=== PATIENT | female | born 1960 | race Caucasian/White ===

== ENCOUNTER → 2017-04-30 | Outpatient (CLI) | payer OTHER ==
[~2017-04-30] MED LIST: Bactrim; HYDR-3419 PO; LEVO175T3 PO; MULT-506 PO; VITBC PO
--- NOTE | 2017-05-01 07:48 | MAMMOGRAPHY REPORT ---
BILATERAL DIGITAL SCREENING MAMMOGRAM TOMOSYNTHESIS WITH CAD: 04/30/2017 CLINICAL HISTORY: Routine screening. Patient has no complaints. TECHNIQUE: Breast tomosynthesis in addition to standard 2D mammography was performed. Current study was also evaluated with a Computer Aided Detection (CAD) system. COMPARISON: Comparison is made to exams dated: 04/24/2016 mammogram, 04/22/2015 mammogram, 04/20/2014 m ammogram, 04/14/2013 mammogram, 04/08/2012 mammogram, and 04/06/2011 mammogram - [facility]. BREAST COMPOSITION: There are scattered areas of fibroglandular density in both breasts. FINDINGS: There are scattered benign rim calcifications and round microcalcifications in the breasts . No suspicious mass, architectural distortion or cluster of new, suspicious microcalcifications is seen. IMPRESSION: ACR BI-RADS CATEGORY 1: NEGATIVE There is no mammographic evidence of malignancy. A 1 year screening mammogram is recommended. The pa tient will receive written notification of the results. Approximately 10% of breast cancers are not detected with mammography. A negative mammographic report should not delay biopsy if a clinically suggestive mass is present. Taylor Guo M.D. ay/:04/30/2017 21:06:04 Shuttle Filler: Debby LANZA(R)(M), [facility] letter sent: Normal 1/2 BI-RADS Code: ACR BI-RADS Category 1: Negative
== END | disposition home or self-care (01) ==
LOC: C.MAMM 12:54
PROVIDERS: ATTEND Physician Assistant
DX: Z12.31 Encounter for screening mammogram for malignant neoplasm of breast (principal)

== ENCOUNTER → 2017-06-06 | Outpatient (CLI) | payer OTHER ==
--- NOTE | 2017-06-06 22:52 | DIAGNOSTIC IMAGING REPORT ---
LEFT SHOULDER 3 VIEWS CLINICAL HISTORY: Left shoulder pain. FINDINGS: 3 views of left shoulder are obtained. No prior studies are available for comparison at the time of dictation. The skeletal structures are osteopenic. No fracture or dislocation is seen. Mild productive change is identified at the acromioclavicular joint. The overlying soft tissues are within normal limits. The imaged left upper lobe lung parenchyma appears clear. IMPRESSION: No acute bony abnormality is seen in the left shoulder. Electronically signed by: Aleks Squires M.D. 06/06/2017 10:51 PM Dictated Date/Time: 06/06/2017 10:50 PM
== END | disposition home or self-care (01) ==
LOC: C.RAD 15:32
PROVIDERS: ATTEND Physician Assistant
DX: M25.512 Pain in left shoulder (principal)

== ENCOUNTER → 2017-12-24 | Outpatient (CLI) | payer OTHER ==
--- NOTE | 2017-12-24 12:05 | DIAGNOSTIC IMAGING REPORT ---
NECK ULTRASOUND CLINICAL HISTORY: Lymph node enlargement. COMPARISON STUDY: Neck ultrasound November 05, 2017. TECHNIQUE: Sonography of the left neck was performed. FINDINGS: A left level 2 lymph node shown on exam of November 05, 2017 has decreased in size since prior exam. It now measures 1.4 x 0.7 x 0.4 cm. It previously measured 1.8 x 0.8 x 0.5 cm. An adjacent morphologically benign left submandibular lymph node is stable or slightly decreased in size as well. IMPRESSION: Interval decrease in size of left-sided cervical lymph nodes which have benign imaging characteristics. Clinical follow up to ensure stability is recommended. Electronically signed by: Nicola Sandhu M.D. 12/24/2017 12:04 PM Dictated Date/Time: 12/24/2017 12:01 PM
== END | disposition home or self-care (01) ==
LOC: C.ULTR 11:12
PROVIDERS: ATTEND Internal Medicine
DX: R59.9 Enlarged lymph nodes, unspecified (principal)

== ENCOUNTER 2021-12-08 09:33 | Inpatient (IN) ==
[2021-12-08] MEDS ORDERED: KETOROLAC TROMETHAMINE 15 MG/ML VIAL IV STA ×2 (11:09→16:27)
[2021-12-08] MEDS ORDERED: ACETAMINOPHEN 1,000 MG/100 ML VIAL IV STA (11:09)
[2021-12-08] MEDS ORDERED: SODIUM CHLORIDE 0.9% 1000ML 2,000 ML IV ONE (11:09)
[2021-12-08 12:28] LABS: Hematocrit (blood only) 35.9 % (34.1-44.9); Hemoglobin 12.4 g/dl (12.0-16.0); Mean Corpuscular Hemoglobin 29.8 pg (25.0-34.0); Mean Corpuscular Hgb Conc 34.5 g/dL (32.0-36.0); Mean Corpuscular Volume 86.3 fL (80.0-100.0); Platelet Count 302 K/uL (130-400); RDW Coefficient of Variation 13.3 % (11.5-14.5); RDW Standard Deviation 41.5 fL (36.4-46.3); Red Blood Count 4.16 M/uL (3.93-5.22); White Blood Count 9.32 K/ul (4.8-10.8)
[2021-12-08 12:54] LABS: Albumin Globulin Ratio 1.1 (0.9-2); BUN Creatinine Ratio 24.6 (10-20); Bilirubin,Total 0.6 mg/dl (0.2-1.0); C Reactive Protein 3.34 mg/dl (0-0.5); Creatinine Clr Calc Pharmacy 93.8 ml/min; Est GFR (African American) 115.2 ml/min; Est GFR (Non-African American) 99.4 ml/min; Globulin 3.8 gm/dl (2.5-4.0); Magnesium 2.2 mg/dl (1.7-2.4); Phosphorus 3.1 mg/dl (2.5-4.9); Potassium 3.3 mmol/L (3.5-5.1); Total Protein 7.8 gm/dl (6.0-8.3)
[2021-12-08 13:09] LABS: Basophils # (auto) 0.09 K/uL (0-0.2); Eosinophils # (auto) 0.18 K/uL (0-0.50); Eosinophils % (auto) 1.9 %; Immature Granulocytes # (auto) 0.63 K/uL (0.00-0.02); Immature Granulocytes % (auto) 6.8 %; Lymphocytes # (auto) 1.52 K/uL (1.2-3.4); Lymphocytes % (auto) 16.3 %; Monocytes # (auto) 0.49 K/uL (0.24-0.82); Monocytes % (auto) 5.3 %; Neutrophils # (auto) 6.41 K/uL (1.4-6.5); Neutrophils % (auto) 68.7 %
--- NOTE | 2021-12-08 13:26 | Ultrasound Report ---
RIGHT LOWER EXTREMITY VENOUS DOPPLER HISTORY: Right leg pain COMPARISON STUDY: None. FINDINGS: There is normal compressibility, flow, and augmentation within the right lower extremity de ep venous system. IMPRESSION: No DVT within the right lower extremity ACT 112: Negative or not required by law. Electronically signed by: Jorge Tellez M.D. 12/08/2021 1:25 PM
[2021-12-08] MEDS ORDERED: OPTIRAY 320 100ml IV ONE (13:58)
[2021-12-08 13:59] LABS: Lyme Ab IgG w/WB Rflx Positive (Negative); Lyme Ab IgM w/WB Rflx Positive (Negative)
--- NOTE | 2021-12-08 14:25 | CT Scan Report ---
CT abd pelvis IV con only CLINICAL HISTORY: lower abd pain, right groin TECHNIQUE: Helical axial images of the abdomen and pelvis were obtained and displayed. Automated dose lowering techniques and/or adjustment according to patient size were utilized for this exam. This e xam was performed with intravenous contrast. CT DOSE: 552.23 mGycm COMPARISON: Comparison is made to CT abdomen pelvis 03/05/2013 FINDINGS: Lower chest: No acute abnormality Liver: Unremarkable. No focal lesions are seen. Gallbladder and biliary tree: The gallbladder is distended. A large gallstone is seen in the gallblad keven neck. The gallbladder wall measures 3 mm in diameter. Mild enlargement of the intra and extrahepa tic bile ducts is seen, the common bile duct measures up to 10 mm in diameter. No intra- or extrahepa tic biliary ductal dilation. Pancreas: Unremarkable, no focal lesions. Spleen: Unremarkable. Adrenals: Unremarkable. Kidneys and ureters: There is a 5 mm hypodensity in the right kidney which may represent a tiny cyst. Bladder: Bladder is distended. Reproductive organs: Unremarkable. Bowel: A hiatal hernia is seen. The appendix is not definitely seen however no secondary signs of reinaldo endicitis are seen. Lymph nodes Retroperitoneal: Unremarkable. Pelvic: Unremarkable. Mesenteric: Unremarkable. Peritoneum: Normal. Vessels: Atherosclerotic calcifications are seen. Abdominal wall: Unremarkable. Bones: Mild degenerative changes are seen. IMPRESSION: Findings are compatible with acute cholecystitis with a stone in the gallbladder neck. ACT 112: Negative or not required by law. Electronically signed by: Gary Sadler M.D. 12/08/2021 2:24 PM
[2021-12-08] MEDS ORDERED: MoRPHine SULFATE 4 MG/ML 1 ML CARP\\VIAL IV STA (15:42)
[2021-12-08] MEDS ORDERED: cefTRIAXone SODIUM 2,000 MG/70 ML BAG IV STA (15:44)
[2021-12-08] MEDS ORDERED: LACTATED RINGER'S 1,000 ML IV SCH ×2 (15:45→18:12)
[2021-12-08] MEDS ORDERED: dexAMETHasone**PF** 10 MG/ML VIAL IV ONE (16:27)
[2021-12-08] MEDS ORDERED: DOXYCYCLINE HYCLATE 100 MG in DEXTROSE 5% 100 ML IV STA (16:27)
--- NOTE | 2021-12-08 16:39 | Emergency Department Note ---
Impression & Plan Lyme disease, Transaminitis, Arthralgia of right thigh, Cholelithiasis, Lower abdominal pain ED Provider Note NAME: ABDOULAYE GRIFFITH AGE: 61 SEX: F ARRIVES VIA: Walk-In INFORMANT: Patient ED PROVIDER(S): Shayan Fortune MD CHIEF COMPLAINT: Bodyaches, lower abdominal pain, right groin pain. PLAN: Disposition: Admit MEDICAL DECISION MAKING: The patient is a pleasant 61-year-old woman with a past medical history of hyperlipidemia, hypothyroidism who presents to the emergency department accompanied by her for evaluation of ongoing generalized malaise, generalized body aches and lower abdominal pain that radiates to her right groin and thigh. Patient reports that her symptoms occur in the setting of initially developing symptoms last with headache, body aches, feverishness and presented to [facility] emergency department where she had blood work performed and was diagnosed with a urinary tract infection. However despite taking antibiotic for this symptoms did not improve when she developed lower abdominal pain into her right groin and leg. She was seen by her PCP on Sunday and had a Lyme screen performed but otherwise it was considered her leg pain may be related to radiculopathy. Notes that she has been monitoring her [employer] portal closely and noted that her Lyme testing was positive today but she had ye t to receive a call. On arrival patient is uncomfortable no acute distress, afebrile, blood pressure 174/80 and otherwise stable vital signs. She appears clinically dry. She has no focal neurologic deficits. Neck is supple with full range of motion. She has mild lower abdominal tenderness without guarding or rebound. She has mild tenderness of the right groin and proximal right thigh without lower extremity edema, discoloration or warmth. EKG without overt acute ischemia; normal intervals. WBC, H/H and platelets within normal limits. Chemistry without metabolic acidosis. Potassium 3.3 and electrolytes otherwise unremarkable. LFTs are noted to be elevated with AST, ALT and alk phos 142, 150, and 304, respectively. ESR and CRP are elevated at 52 and 3.3, respectively. Lipase not elevated. Lyme screen was positive for IgM and IgG antibodies. Anaplasma and Babesia smear were negative. Anaplasma and Babesia DNA test are pending. COVID-19 PCR was negative. Ultrasound of the right lower extremity was negative for DVT. CT of the abdomen pelvis demonstrates large gallstone within the gallbladder neck with CBD measuring 10 mm which raise suspicion for cholecystitis. Upon reevaluation the patient reports some tenderness with deep palpation but not severe. Her abdominal pain is more evident in the lower abdomen. Further, given her total bilirubin is within normal limits it seems less likely that her symptoms are related to cholecystitis. However, general surgery was consulted and case was discussed with Daniela ORELLANA and Dr. Sin general surgery on-call. Appreciate consultation/recommendations. Agree that cholecystitis is considered less likely and patient may follow-up outpatient regarding this if she were to go home. If she were to be admitted further evaluation with MRCP could be considered. I did review the patient's findings with the patient and her at the bedside. Given the duration of her symptoms which have not improved and appear to be worsening in the setting of her transaminitis which may be due to her Lyme infection with the possibility of Anaplasma we did agree with plan for admission for further management. Blood cultures were drawn and patient was treated with IV ceftriaxone for Lyme and given additional doxycycline for the possibility coinfection with Anaplasma. [place], with Dr. Kirsten Rizzo hospitalist who will evaluate the patient for admission. Triage Nursing notes reviewed and agree them. Prior medical records reviewed Vital Signs: reviewed and remarkable for hypertension. Differential diagnosis: Infection, dehydration, metabolic abnormality, hypo/hyperglycemia, electrolyte disturbance, anemia, hypoxia, cardiac sources, intracerebral event, toxicologic, neurologic, as well as other pathologies. ER treatment provided: See below. Diagnostics interpreted by me: ECG: Normal sinus rhythm, 66 bpm, no ectopy, no overt ST elevation or depression, AL 174, QTC 431, QRS 92. Cardiac Monitoring: An order for continuous cardiac monitoring was placed and demonstrated Normal sinus rhythm, 66 bpm, no ectopy. Laboratory studies: See below Imaging studies: See below Consultation(s): Daniela ORELLANA and Dr. Sin general surgery on-call [place], with Dr. Kirsten Rizzo hospitalist HPI: The patient is a pleasant 61-year-old woman with a past medical history of hyperlipidemia, hypothyroidism who presents to the emergency department accompanied by her for evaluation of ongoing generalized malaise, generalized body aches and lower abdominal pain that radiates to her right groin and thigh. Patient reports that her symptoms occur in the setting of initially developing symptoms last with headache, body aches, feverishness and presented to [facility] emergency department where she had blood work performed and was diagnosed with a urinary tract infection. However despite taking antibiotic for this symptoms did not improve when she developed lower ab dominal pain into her right groin and leg. She was seen by her PCP on Sunday and had a Lyme screen performed but otherwise it was considered her leg pain may be related to radiculopathy. Notes that she has been monitoring her [employer] portal closely and noted that her Lyme testing was positive today but she had yet to receive a call. ROS: See above HPI for pertinent positives & negatives. A total of 10 systems reviewed and were otherwise negative. VITALS:See Below PHYSICAL EXAMINATION: GENERAL: Awake, alert, fatigued-appearing, in no distress HENT: Normocephalic, atraumatic. Oropharynx with dry mucous membranes and otherwise unremarkable EYES: Normal conjunctiva. Sclera non-icteric. EOMI. No nystamgus. PEARRL. NECK: Supple. No nuchal rigidity. FROM. No JVD. RESPIRATORY: Clear to auscultation. CARDIAC: Regular rate, normal rhythm. Extremities warm and well perfused. Pulses equal. ABDOMEN: Soft, non-distended. Mild lower abdominal tenderness to palpation. No rebound or guarding. No masses. RECTAL: Deferred. MUSCULOSKELETAL: Chest examination reveals no tenderness. The back is symmetrical on inspection without obvious abnormality. There is no CVA tenderness to palpation. No joint edema. FROM. LOWER EXTREMITIES: Calves are equal size bilaterally and non-tender. No edema. No discoloration. Mild tenderness of right medial thigh. NEURO: Normal sensorium. No sensory or motor deficits noted. SKIN: Patch of light, non-raised/non-warm/non-tender erythema to the medial aspect of her left ankle. No rash or jaundice noted. Shayan Fortune MD Past Med/Surg History Medical History Arthritis Hypothyroidism Surgical History History of appendectomy History of colonoscopy History of tonsillectomy [place] teeth removed Family History (Updated 12/08/21 @ 17:43 by Maggie Duncan PA-C) Mother Cancer Lung disease Father Heart disease Hypertension ESRD (end stage renal disease) Social History (Updated 12/08/21 @ 18:09 by Maggie Duncan PA-C) Smoking Status: Former smoker Smoking End Date: 1987; Second Hand Exposure: No; Tobacco Cessation Education Requested by Patient: No Hx Alcohol Use: Yes Alcohol type: hard liquor Alcohol Intake Frequency Comment: rare occasion - ex. wedding celebration Hx Substance Use: No Preferred Language: Chinese Communication Ability: Effective Lock Expert Required: No Beliefs That Will Affect Care: None Current Living Situation: Family Current Living Situation Comment: AND SON Other Information That Helps Us Care for You: No Feels Safe at Home: Yes Safety Concerns: Feels Safe At This Time Assistive Devices: Glasses Allergies Allergies Allergy/AdvReac Type Severity Reaction Status Date / Time No Known Allergies Allergy Verified 12/08/21 14:22 Home Meds Home Medications Medication Instructions Recorded Confirmed alfalfa 250 mg tablet 2,500 mg PO DAILY 05/26/19 12/08/21 multivitamin 1 tab PO DAILY 05/26/19 12/08/21 vitamin B complex 1 tab PO DAILY 05/26/19 12/08/21 ascorbic acid (vitamin C) 500 mg 1,000 mg PO DAILY 04/06/21 12/08/21 tablet (Vitamin C) levothyroxine 125 mcg tablet 125 mcg PO DAILYBB 12/08/21 12/08/21 (Euthyrox) Results & Data (ED) Vital Signs Vital Signs - 24 hr 12/08/21 09:40 12/08/21 12:10 12/08/21 11:33 Temperature 36.4 C L Temperature Source Oral Pulse Rate 75 75 Pulse Rate [Apical] 62 Pulse Rate from SpO2 Sensor Pulse Rhythm Regular Pulse Rhythm [Apical] Regular Respiratory Rate 18 18 16 Respiratory Effort / Characteristics Non-Labored Respiratory Depth Normal Respiratory Pattern Regular Blood Pressure 174/80 H Blood Pressure [Right Arm] 175/80 H Blood Pressure Mean 111 Blood Pressure Mean [Right Arm] 111 Pulse Oximetry 97 97 98 Oxygen Delivery Method Room Air Room Air Room Air Sepsis Recent Fever Within 48 Hours No Sepsis New/Unexplained Change in Mental Status No Sepsis Action Taken by Nursing No Action Required 12/08/21 13:00 12/08/21 15:03 12/08/21 15:30 Temperature Temperature Source Pulse Rate 65 Pulse Rate [Apical] 59 L Pulse Rate from SpO2 Sensor 66 Pulse Rhythm Pulse Rhythm [Apical] Regular Respiratory Rate 18 15 Respiratory Effort / Characteristics Non-Labored Respiratory Depth Normal Respiratory Pattern Regular Blood Pressure 164/71 H 173/77 H Blood Pressure [Right Arm] 157/112 H Blood Pressure Mean 102 109 Blood Pressure Mean [Right Arm] 127 Pulse Oximetry 97 98 Oxygen Delivery Method Room Air Sepsis Recent Fever Within 48 Hours Sepsis New/Unexplained Change in Mental Status Sepsis Action Taken by Nursing 12/08/21 15:30 12/08/21 16:00 12/08/21 16:30 Temperature Temperature Source Pulse Rate 71 66 Pulse Rate [Apical] Pulse Rate from SpO2 Sensor 71 58 L 66 Pulse Rhythm Pulse Rhythm [Apical] Respiratory Rate 17 14 Respiratory Effort / Characteristics Respiratory Depth Respiratory Pattern Blood Pressure Blood Pressure [Right Arm] Blood Pressure Mean Blood Pressure Mean [Right Arm] Pulse Oximetry 98 97 95 Oxygen Delivery Method Sepsis Recent Fever Within 48 Hours Sepsis New/Unexplained Change in Mental Status Sepsis Action Taken by Nursing 12/08/21 16:36 12/08/21 16:36 Temperature Temperature Source Pulse Rate 62 Pulse Rate [Apical] Pulse Rate from SpO2 Sensor 62 Pulse Rhythm Pulse Rhythm [Apical] Respiratory Rate 20 Respiratory Effort / Characteristics Respiratory Depth Respiratory Pattern Blood Pressure 147/76 H Blood Pressure [Right Arm] Blood Pressure Mean 99 Blood Pressure Mean [Right Arm] Pulse Oximetry 95 Oxygen Delivery Method Sepsis Recent Fever Within 48 Hours Sepsis New/Unexplained Change in Mental Status Sepsis Action Taken by Nursing Laboratory Data Attestation: I reviewed the patient's lab results. Result diagrams: 12/08/21 11:46 12/08/21 11:46 Lab Results 12/08/21 12/08/21 12/08/21 Range/Units 11:46 11:46 11:46 WBC 9.32 (4.8-10.8) K/ul RBC 4.16 (3.93-5.22) M/uL Hgb 12.4 (12.0-16.0) g/dl Hct 35.9 (34.1-44.9) % MCV 86.3 (80.0-100.0) fL MCH 29.8 (25.0-34.0) pg MCHC 34.5 (32.0-36.0) g/dL RDW Std Deviation 41.5 (36.4-46.3) fL RDW Coeff of Lo 13.3 (11.5-14.5) % Plt Count 302 (130-400) K/uL MPV 9.0 L (9.4-12.3) fL Immature Gran % (Auto) 6.8 % Neut % (Auto) 68.7 % Lymph % (Auto) 16.3 % [place] % (Auto) 5.3 % Eos % (Auto) 1.9 % Baso % (Auto) 1.0 % Neut # (Auto) 6.41 (1.4-6.5) K/uL Lymph # (Auto) 1.52 (1.2-3.4) K/uL [place] # (Auto) 0.49 (0.24-0.82) K/uL Eos # (Auto) 0.18 (0-0.50) K/uL Baso # (Auto) 0.09 (0-0.2) K/uL Immature Gran # (Auto) 0.63 H (0.00-0.02) K/uL ESR (0-30) mm/hr Sodium 140 (136-145) mmol/L Potassium 3.3 L (3.5-5.1) mmol/L Chloride 104 (98-107) mmol/L Carbon Dioxide 30 (21-32) mmol/L Anion Gap 6 (3-11) BUN 14 (6-23) mg/dl Creatinine 0.57 L (0.6-1.2) mg/dl Est Cr Clr Drug Dosing 93.8 ml/min Est GFR ( Amer) 115.2 ml/min Est GFR (Non-Af Amer) 99.4 ml/min BUN/Creatinine Ratio 24.6 H (10-20) Glucose 100 H (70-99(Fasting)) mg/dl Lactate (0.4-2.0) mmol/L Calcium 9.0 (8.5-10.1) mg/dl Phosphorus 3.1 (2.5-4.9) mg/dl Magnesium 2.2 (1.7-2.4) mg/dl Total Bilirubin 0.6 (0.2-1.0) mg/dl AST 142 H (13-39) U/L ALT 150 H (7-52) U/L Alkaline Phosphatase 304 H (34-104) U/L C-Reactive Protein 3.34 H (0-0.5) mg/dl Total Protein 7.8 (6.0-8.3) gm/dl Albumin 4.0 (3.4-5.0) gm/dl Globulin 3.8 (2.5-4.0) gm/dl Albumin/Globulin Ratio 1.1 (0.9-2) Lipase 80 (11-82) U/L Procalcitonin (0-0.5) ng/ml Anaplasma Smear See Comment Babesia Smear See Comment Lyme Disease IgG Ab (Negative) Lyme Disease IgM Ab (Negative) SARS-CoV-2 (PCR) (Negative) 12/08/21 12/08/21 12/08/21 Range/Units 11:46 11:46 11:46 WBC (4.8-10.8) K/ul RBC (3.93-5.22) M/uL Hgb (12.0-16.0) g/dl Hct (34.1-44.9) % MCV (80.0-100.0) fL MCH (25.0-34.0) pg MCHC (32.0-36.0) g/dL RDW Std Deviation (36.4-46.3) fL RDW Coeff of Lo (11.5-14.5) % Plt Count (130-400) K/uL MPV (9.4-12.3) fL Immature Gran % (Auto) % Neut % (Auto) % Lymph % (Auto) % [place] % (Auto) % Eos % (Auto) % Baso % (Auto) % Neut # (Auto) (1.4-6.5) K/uL Lymph # (Auto) (1.2-3.4) K/uL [place] # (Auto) (0.24-0.82) K/uL Eos # (Auto) (0-0.50) K/uL Baso # (Auto) (0-0.2) K/uL Immature Gran # (Auto) (0.00-0.02) K/uL ESR 52 H (0-30) mm/hr Sodium (136-145) mmol/L Potassium (3.5-5.1) mmol/L Chloride (98-107) mmol/L Carbon Dioxide (21-32) mmol/L Anion Gap (3-11) BUN (6-23) mg/dl Creatinine (0.6-1.2) mg/dl Est Cr Clr Drug Dosing ml/min Est GFR ( Amer) ml/min Est GFR (Non-Af Amer) ml/min BUN/Creatinine Ratio (10-20) Glucose (70-99(Fasting)) mg/dl Lactate (0.4-2.0) mmol/L Calcium (8.5-10.1) mg/dl Phosphorus (2.5-4.9) mg/dl Magnesium (1.7-2.4) mg/dl Total Bilirubin (0.2-1.0) mg/dl AST (13-39) U/L ALT (7-52) U/L Alkaline Phosphatase (34-104) U/L C-Reactive Protein (0-0.5) mg/dl Total Protein (6.0-8.3) gm/dl Albumin (3.4-5.0) gm/dl Globulin (2.5-4.0) gm/dl Albumin/Globulin Ratio (0.9-2) Lipase (11-82) U/L Procalcitonin 0.09 (0-0.5) ng/ml Anaplasma Smear Babesia Smear Lyme Disease IgG Ab Positive A (Negative) Lyme Disease IgM Ab Positive A (Negative) SARS-CoV-2 (PCR) (Negative) 12/08/21 12/08/21 Range/Units 12:02 16:30 WBC (4.8-10.8) K/ul RBC (3.93-5.22) M/uL Hgb (12.0-16.0) g/dl Hct (34.1-44.9) % MCV (80.0-100.0) fL MCH (25.0-34.0) pg MCHC (32.0-36.0) g/dL RDW Std Deviation (36.4-46.3) fL RDW Coeff of Lo (11.5-14.5) % Plt Count (130-400) K/uL MPV (9.4-12.3) fL Immature Gran % (Auto) % Neut % (Auto) % Lymph % (Auto) % [place] % (Auto) % Eos % (Auto) % Baso % (Auto) % Neut # (Auto) (1.4-6.5) K/uL Lymph # (Auto) (1.2-3.4) K/uL [place] # (Auto) (0.24-0.82) K/uL Eos # (Auto) (0-0.50) K/uL Baso # (Auto) (0-0.2) K/uL Immature Gran # (Auto) (0.00-0.02) K/uL ESR (0-30) mm/hr Sodium (136-145) mmol/L Potassium (3.5-5.1) mmol/L Chloride (98-107) mmol/L Carbon Dioxide (21-32) mmol/L Anion Gap (3-11) BUN (6-23) mg/dl Creatinine (0.6-1.2) mg/dl Est Cr Clr Drug Dosing ml/min Est GFR ( Amer) ml/min Est GFR (Non-Af Amer) ml/min BUN/Creatinine Ratio (10-20) Glucose (70-99(Fasting)) mg/dl Lactate 0.5 (0.4-2.0) mmol/L Calcium (8.5-10.1) mg/dl Phosphorus (2.5-4.9) mg/dl Magnesium (1.7-2.4) mg/dl Total Bilirubin (0.2-1.0) mg/dl AST (13-39) U/L ALT (7-52) U/L Alkaline Phosphatase (34-104) U/L C-Reactive Protein (0-0.5) mg/dl Total Protein (6.0-8.3) gm/dl Albumin (3.4-5.0) gm/dl Globulin (2.5-4.0) gm/dl Albumin/Globulin Ratio (0.9-2) Lipase (11-82) U/L Procalcitonin (0-0.5) ng/ml Anaplasma Smear Babesia Smear Lyme Disease IgG Ab (Negative) Lyme Disease IgM Ab (Negative) SARS-CoV-2 (PCR) NEGATIVE (Negative) Administered Medications Sodium Chloride (Nss 1000ml) 1,000 mls @ 80 mls/hr IV .[id number] SUDHA Stop: 12/09/21 19:14 Last Admin: 12/08/21 19:06 Dose: 80 mls/hr Documented By: TLM Discontinued Medications Dexamethasone Sodium Phosphate (DexamethasonePf 10 Mg/Ml Vial) 10 mg IV NOW ONE Stop: 12/08/21 16:28 Last Admin: 12/08/21 17:14 Dose: 10 mg Documented By: SUZANNE Sodium Chloride (Nss 1000ml) 2,000 mls @ 999 mls/hr IV .Q2H1M ONE Stop: 12/08/21 13:09 Last Infusion: 12/08/21 14:53 Dose: 0 mls/hr Documented By: Admin: 12/08/21 12:04 Dose: 999 mls/hr Documented By: TONYA Acetaminophen (Ofirmev) 1,000 mg in 100 mls @ 400 mls/hr IV NOW STA Stop: 12/08/21 11:23 Last Infusion: 12/08/21 12:31 Dose: 0 mls/hr Documented By: Admin: 12/08/21 12:06 Dose: 400 mls/hr Documented By: TONYA Lactated Ringer's (Lr) 1,000 mls @ 125 mls/hr IV .Q8H SUDHA Stop: 01/07/22 15:44 Last Admin: 12/08/21 18:25 Dose: Not Given Documented By: ISABEL Ceftriaxone Sodium (Rocephin) 2,000 mg in 70 mls @ 140 mls/hr IV NOW STA Stop: 12/08/21 16:13 Last Infusion: 12/08/21 17:13 Dose: 0 mls/hr Documented By: Admin: 12/08/21 16:36 Dose: 140 mls/hr Documented By: SUZANNE Doxycycline Hyclate 100 mg/ (Dextrose) 110 mls @ 50 mls/hr IV NOW STA Stop: 12/08/21 18:38 Last Infusion: 12/08/21 20:44 Dose: 0 mls/hr Documented By: Admin: 12/08/21 18:25 Dose: 50 mls/hr Documented By: ISABEL Ioversol (Optiray 320 100ml) 93 ml IV ONCE ONE Stop: 12/08/21 13:59 Last Admin: 12/08/21 14:01 Dose: 93 ml Documented By: KARIN Ketorolac Tromethamine (Ketorolac Tromethamine 15 Mg/Ml Vial) 15 mg IV NOW STA Stop: 12/08/21 11:10 Last Admin: 12/08/21 12:05 Dose: 15 mg Documented By: TONYA Ketorolac Tromethamine (Ketorolac Tromethamine 15 Mg/Ml Vial) 15 mg IV NOW STA Stop: 12/08/21 16:28 Last Admin: 12/08/21 17:16 Dose: 15 mg Documented By: AM Morphine Sulfate (Morphine Sulfate 4 Mg/Ml 1 Ml Carp\Vial) 4 mg IV NOW STA Stop: 12/08/21 15:43 Last Admin: 12/08/21 16:08 Dose: 4 mg Documented By: AM Imaging Data Radiologist's Impression: Abdomen/Pelvis CT 12/08/21 11:02 CT abd pelvis IV con only CLINICAL HISTORY: lower abd pain, right groin TECHNIQUE: Helical axial images of the abdomen and pelvis were obtained and displayed. Automated dose lowering techniques and/or adjustment according to patient size were utilized for this exam. This exam was performed with intravenous contrast. CT DOSE: 552.23 mGycm COMPARISON: Comparison is made to CT abdomen pelvis 03/05/2013 FINDINGS: Lower chest: No acute abnormality Liver: Unremarkable. No focal lesions are seen. Gallbladder and biliary tree: The gallbladder is distended. A large gallstone is seen in the gallbladder neck. The gallbladder wall measures 3 mm in diameter. Mild enlargement of the intra and extrahepatic bile ducts is seen, the common bile duct measures up to 10 mm in diameter. No intra- or extrahepatic biliary ductal dilation. Pancreas: Unremarkable, no focal lesions. Spleen: Unremarkable. Adrenals: Unremarkable. Kidneys and ureters: There is a 5 mm hypodensity in the right kidney which may represent a tiny cyst. Bladder: Bladder is distended. Reproductive organs: Unremarkable. Bowel: A hiatal hernia is seen. The appendix is not definitely seen however no secondary signs of appendicitis are seen. Lymph nodes Retroperitoneal: Unremarkable. Pelvic: Unremarkable. Mesenteric: Unremarkable. Peritoneum: Normal. Vessels: Atherosclerotic calcifications are seen. Abdominal wall: Unremarkable. Bones: Mild degenerative changes are seen. IMPRESSION: Findings are compatible with acute cholecystitis with a stone in the gallbladder neck. ACT 112: Negative or not required by law. Electronically signed by: Gary Sadler M.D. 12/08/2021 2:24 PM Venous Doppler Study 12/08/21 11:07 RIGHT LOWER EXTREMITY VENOUS DOPPLER HISTORY: Right leg pain COMPARISON STUDY: None. FINDINGS: There is normal compressibility, flow, and augmentation within the right lower extremity deep venous system. IMPRESSION: No DVT within the right lower extremity ACT 112: Negative or not required by law. Electronically signed by: Jorge Tellez M.D. 12/08/2021 1:25 PM Discharge Plan Visit Data Chief Complaint: Leg Injury/Pain Stated Complaint: PAIN IN R LEG ED Provider: Shayan Fortune Discharge Problem: Lyme disease, Transaminitis, Arthralgia of right thigh, Cholelithiasis, Lower abdominal pain Patient Disposition: Admitted As Inpatient Discharge Instructions Interventions: ED Discharge Assessment Last Done: 12/08/21 17:38
--- NOTE | 2021-12-08 16:48 | Surgery Consultation ---
Date of Consultation December 08, 2021 Assessment & Plan (1) Lyme disease: (2) Gallstone: Plan 61 year-old female with 1 week history of generalized aches/pains, fever, nausea without vomiting, pain in right lower groin into her right leg more acutely in last few days who was found to have gallstone in gallbladder neck with distended gallbladder on CT scan and dilated CBD at 10 mm. Her t. bili is wnl , lfts and alk phos elevated. No leukocytosis. Bilateral lower abdominal pain, negative Rodriguez's sign and no RUQ tenderness to palpation. + lyme disease. Plan: No indication for cholecystectomy at this time. Her CT scan findings of gallstone in gallbladder neck is likely an incidental as she is not having any biliary symptoms. Her LFTs may be elevated secondary to lyme disease and her t. bili is normal. Could get an MRCP to further evaluate for any cholecystitis and biliary obstruction/abnormality given the dilated CBD at 10 mm. Her main complaint is right groin and right lower extremity pain. Since she has been to ED twice in last week and her generalized symptoms are not improving would likely benefit from hospitalist admission for treatment of lyme disease and if her nausea/abdominal pain persists could then entertain/discuss cholecystectomy if warranted. Dr. Sin has seen and examined pt, see addendum for further recommendations/plan. Supervising Physician Co-Signing Physician Notes I seen and examined the patient personally and agree with the above assessment and plan. She does have gallstones and gallbladder but this is most likely incidental finding. The symptoms that brought her to the emergency department are more consistent with a Lyme disease which she has just been diagnosed with. She will start doxycycline. She will be admitted to the medicine service. We will follow peripherally. History of Present Illness Reason for Consultation: Gallstone Requesting Physician: Dr. Fortune History of Present Illness Ashley is a 61 year old female who came in ED with complaint of severe pain down her right groin into her right hip and right leg. She has been feeling unwell for about one week. Was in ED in [place] and was found to have a UTI and started on antibiotics. She saw her PCP office and was tested for lymes disease and that came back positive today. She was sent a prescription for the lyme disease but has not started it yet. She states she was having generalized aches, severe neck pain and headache, low appetite, nausea without vomiting in the last week. She denies of specific RUQ abdominal pain with severe pain after eating. No prior history of gallbladder problems. ER work-up included CT scan which is showing gallstone in gallbladder neck with CBD dilated at 10 mm. Allergies Allergy/AdvReac Type Severity Reaction Status Date / Time No Known Allergies Allergy Verified 12/08/21 14:22 Home Medications Medication Instructions Recorded Confirmed Type alfalfa 250 mg tablet 2,500 mg PO DAILY 05/26/19 12/08/21 History multivitamin 1 tab PO DAILY 05/26/19 12/08/21 History vitamin B complex 1 tab PO DAILY 05/26/19 12/08/21 History ascorbic acid (vitamin C) 500 mg 1,000 mg PO DAILY 04/06/21 12/08/21 History tablet (Vitamin C) levothyroxine 125 mcg tablet 125 mcg PO DAILYBB 12/08/21 12/08/21 History (Euthyrox) Patient History Medical History Arthritis Hypothyroidism Surgical History History of appendectomy History of colonoscopy History of tonsillectomy [place] teeth removed Family History (Updated 12/08/21 @ 17:43 by Maggie Duncan PA-C) Mother Cancer Lung disease Father Heart disease Hypertension ESRD (end stage renal disease) Social History (Updated 12/08/21 @ 18:09 by Maggie Duncan PA-C) Smoking Status: Former smoker Smoking End Date: 1987; Second Hand Exposure: No; Tobacco Cessation Education Requested by Patient: No Hx Alcohol Use: Yes Alcohol type: hard liquor Alcohol Intake Frequency Comment: rare occasion - ex. wedding celebration Hx Substance Use: No Preferred Language: Hungarian Communication Ability: Effective Numberer And Wirer Required: No Beliefs That Will Affect Care: None Current Living Situation: Family Current Living Situation Comment: AND SON Other Information That Helps Us Care for You: No Feels Safe at Home: Yes Safety Concerns: Feels Safe At This Time Assistive Devices: Glasses Review of Systems Review of Systems: All systems reviewed & are unremarkable except as noted in HPI & below Physical Exam Constitutional: WD/WN, vitals as above no acute distress and not ill appearing Neck: normal visual inspection and trachea midline Respiratory: normal respiratory effort; no respiratory distress and no labored breathing Gastrointestinal (Abdomen): Inspection/Auscultation: abdomen normal to inspection; abdomen not distended Percussion/Palpation: + abdomen tender (lower abdomen bilaterally) and abdomen soft; no guarding and abdomen not rigid Negative Rodriguez's sign, no significant RUQ pain on deep palpation Skin: no rashes, warm and dry no jaundice Psychiatric: A+Ox3, euthymic affect Results & Data ([facility]) Vital Signs (Past 12 Hours) Vital Signs Temp Pulse Pulse Resp BP BP Pulse Ox 12/08/21 15:03 65 15 164/71 H 98 12/08/21 13:00 59 L 18 157/112 H 97 12/08/21 11:33 62 16 175/80 H 98 12/08/21 12:10 75 18 97 12/08/21 09:40 36.4 C L 75 18 174/80 H 97 O2 Del Method 12/08/21 15:03 12/08/21 13:00 Room Air 12/08/21 11:33 Room Air 12/08/21 12:10 Room Air 12/08/21 09:40 Room Air Laboratory Results 12/08/21 12/08/21 12/08/21 Range/Units 12:02 11:46 11:46 WBC (4.8-10.8) K/ul RBC (3.93-5.22) M/uL Hgb (12.0-16.0) g/dl Hct (34.1-44.9) % MCV (80.0-100.0) fL MCH (25.0-34.0) pg MCHC (32.0-36.0) g/dL RDW Std Deviation (36.4-46.3) fL RDW Coeff of Lo (11.5-14.5) % Plt Count (130-400) K/uL MPV (9.4-12.3) fL Immature Gran % (Auto) % Neut % (Auto) % Lymph % (Auto) % [place] % (Auto) % Eos % (Auto) % Baso % (Auto) % Neut # (Auto) (1.4-6.5) K/uL Lymph # (Auto) (1.2-3.4) K/uL [place] # (Auto) (0.24-0.82) K/uL Eos # (Auto) (0-0.50) K/uL Baso # (Auto) (0-0.2) K/uL Immature Gran # (Auto) (0.00-0.02) K/uL ESR 52 H (0-30) mm/hr Sodium (136-145) mmol/L Potassium (3.5-5.1) mmol/L Chloride (98-107) mmol/L Carbon Dioxide (21-32) mmol/L Anion Gap (3-11) BUN (6-23) mg/dl Creatinine (0.6-1.2) mg/dl Est Cr Clr Drug Dosing ml/min Est GFR ( Amer) ml/min Est GFR (Non-Af Amer) ml/min BUN/Creatinine Ratio (10-20) Glucose (70-99(Fasting)) mg/dl Calcium (8.5-10.1) mg/dl Phosphorus (2.5-4.9) mg/dl Magnesium (1.7-2.4) mg/dl Total Bilirubin (0.2-1.0) mg/dl AST (13-39) U/L ALT (7-52) U/L Alkaline Phosphatase (34-104) U/L C-Reactive Protein (0-0.5) mg/dl Total Protein (6.0-8.3) gm/dl Albumin (3.4-5.0) gm/dl Globulin (2.5-4.0) gm/dl Albumin/Globulin Ratio (0.9-2) Lipase (11-82) U/L Anaplasma Smear A. phagocytophilum DNA Babesia Smear Babesia microti DNA PCR Lyme Disease IgG Ab (Negative) Lyme IgG (Western Blot) Pending Lyme IgG 18 kDa Band Pending Lyme IgG 23 kDa Band Pending Lyme IgG 28 kDa Band Pending Lyme IgG 30 kDa Band Pending Lyme IgG 39 kDa Band Pending Lyme IgG 41 kDa Band Pending Lyme IgG 45 kDa Band Pending Lyme IgG 58 kDa Band Pending Lyme IgG 66 kDa Band Pending Lyme IgG 93 kDa Band Pending Lyme IgM Ab (WB) Pending Lyme Disease IgM Ab (Negative) Lyme IgM 23 kDa Band Pending Lyme IgM 39 kDa Band Pending Lyme IgM 41 kDa Band Pending SARS-CoV-2 (PCR) NEGATIVE (Negative) 12/08/21 12/08/21 12/08/21 Range/Units 11:46 11:46 11:46 WBC (4.8-10.8) K/ul RBC (3.93-5.22) M/uL Hgb (12.0-16.0) g/dl Hct (34.1-44.9) % MCV (80.0-100.0) fL MCH (25.0-34.0) pg MCHC (32.0-36.0) g/dL RDW Std Deviation (36.4-46.3) fL RDW Coeff of Lo (11.5-14.5) % Plt Count (130-400) K/uL MPV (9.4-12.3) fL Immature Gran % (Auto) % Neut % (Auto) % Lymph % (Auto) % [place] % (Auto) % Eos % (Auto) % Baso % (Auto) % Neut # (Auto) (1.4-6.5) K/uL Lymph # (Auto) (1.2-3.4) K/uL [place] # (Auto) (0.24-0.82) K/uL Eos # (Auto) (0-0.50) K/uL Baso # (Auto) (0-0.2) K/uL Immature Gran # (Auto) (0.00-0.02) K/uL ESR (0-30) mm/hr Sodium 140 (136-145) mmol/L Potassium 3.3 L (3.5-5.1) mmol/L Chloride 104 (98-107) mmol/L Carbon Dioxide 30 (21-32) mmol/L Anion Gap 6 (3-11) BUN 14 (6-23) mg/dl Creatinine 0.57 L (0.6-1.2) mg/dl Est Cr Clr Drug Dosing 93.8 ml/min Est GFR ( Amer) 115.2 ml/min Est GFR (Non-Af Amer) 99.4 ml/min BUN/Creatinine Ratio 24.6 H (10-20) Glucose 100 H (70-99(Fasting)) mg/dl Calcium 9.0 (8.5-10.1) mg/dl Phosphorus 3.1 (2.5-4.9) mg/dl Magnesium 2.2 (1.7-2.4) mg/dl Total Bilirubin 0.6 (0.2-1.0) mg/dl AST 142 H (13-39) U/L ALT 150 H (7-52) U/L Alkaline Phosphatase 304 H (34-104) U/L C-Reactive Protein 3.34 H (0-0.5) mg/dl Total Protein 7.8 (6.0-8.3) gm/dl Albumin 4.0 (3.4-5.0) gm/dl Globulin 3.8 (2.5-4.0) gm/dl Albumin/Globulin Ratio 1.1 (0.9-2) Lipase 80 (11-82) U/L Anaplasma Smear A. phagocytophilum DNA Babesia Smear Babesia microti DNA PCR Pending Lyme Disease IgG Ab Positive A (Negative) Lyme IgG (Western Blot) Lyme IgG 18 kDa Band Lyme IgG 23 kDa Band Lyme IgG 28 kDa Band Lyme IgG 30 kDa Band Lyme IgG 39 kDa Band Lyme IgG 41 kDa Band Lyme IgG 45 kDa Band Lyme IgG 58 kDa Band Lyme IgG 66 kDa Band Lyme IgG 93 kDa Band Lyme IgM Ab (WB) Lyme Disease IgM Ab Positive A (Negative) Lyme IgM 23 kDa Band Lyme IgM 39 kDa Band Lyme IgM 41 kDa Band SARS-CoV-2 (PCR) (Negative) 12/08/21 12/08/21 12/08/21 Range/Units 11:46 11:46 11:46 WBC 9.32 (4.8-10.8) K/ul RBC 4.16 (3.93-5.22) M/uL Hgb 12.4 (12.0-16.0) g/dl Hct 35.9 (34.1-44.9) % MCV 86.3 (80.0-100.0) fL MCH 29.8 (25.0-34.0) pg MCHC 34.5 (32.0-36.0) g/dL RDW Std Deviation 41.5 (36.4-46.3) fL RDW Coeff of Lo 13.3 (11.5-14.5) % Plt Count 302 (130-400) K/uL MPV 9.0 L (9.4-12.3) fL Immature Gran % (Auto) 6.8 % Neut % (Auto) 68.7 % Lymph % (Auto) 16.3 % [place] % (Auto) 5.3 % Eos % (Auto) 1.9 % Baso % (Auto) 1.0 % Neut # (Auto) 6.41 (1.4-6.5) K/uL Lymph # (Auto) 1.52 (1.2-3.4) K/uL [place] # (Auto) 0.49 (0.24-0.82) K/uL Eos # (Auto) 0.18 (0-0.50) K/uL Baso # (Auto) 0.09 (0-0.2) K/uL Immature Gran # (Auto) 0.63 H (0.00-0.02) K/uL ESR (0-30) mm/hr Sodium (136-145) mmol/L Potassium (3.5-5.1) mmol/L Chloride (98-107) mmol/L Carbon Dioxide (21-32) mmol/L Anion Gap (3-11) BUN (6-23) mg/dl Creatinine (0.6-1.2) mg/dl Est Cr Clr Drug Dosing ml/min Est GFR ( Amer) ml/min Est GFR (Non-Af Amer) ml/min BUN/Creatinine Ratio (10-20) Glucose (70-99(Fasting)) mg/dl Calcium (8.5-10.1) mg/dl Phosphorus (2.5-4.9) mg/dl Magnesium (1.7-2.4) mg/dl Total Bilirubin (0.2-1.0) mg/dl AST (13-39) U/L ALT (7-52) U/L Alkaline Phosphatase (34-104) U/L C-Reactive Protein (0-0.5) mg/dl Total Protein (6.0-8.3) gm/dl Albumin (3.4-5.0) gm/dl Globulin (2.5-4.0) gm/dl Albumin/Globulin Ratio (0.9-2) Lipase (11-82) U/L Anaplasma Smear See Comment A. phagocytophilum DNA Pending Babesia Smear See Comment Babesia microti DNA PCR Lyme Disease IgG Ab (Negative) Lyme IgG (Western Blot) Lyme IgG 18 kDa Band Lyme IgG 23 kDa Band Lyme IgG 28 kDa Band Lyme IgG 30 kDa Band Lyme IgG 39 kDa Band Lyme IgG 41 kDa Band Lyme IgG 45 kDa Band Lyme IgG 58 kDa Band Lyme IgG 66 kDa Band Lyme IgG 93 kDa Band Lyme IgM Ab (WB) Lyme Disease IgM Ab (Negative) Lyme IgM 23 kDa Band Lyme IgM 39 kDa Band Lyme IgM 41 kDa Band SARS-CoV-2 (PCR) (Negative) Diagnostic Findings CT abd pelvis IV con only CLINICAL HISTORY: lower abd pain, right groin TECHNIQUE: Helical axial images of the abdomen and pelvis were obtained and displayed. Automated dose lowering techniques and/or adjustment according to patient size were utilized for this exam. This exam was performed with intravenous contrast. CT DOSE: 552.23 mGycm COMPARISON: Comparison is made to CT abdomen pelvis 03/05/2013 FINDINGS: Lower chest: No acute abnormality Liver: Unremarkable. No focal lesions are seen. Gallbladder and biliary tree: The gallbladder is distended. A large gallstone is seen in the gallbladder neck. The gallbladder wall measures 3 mm in diameter. Mild enlargement of the intra and extrahepatic bile ducts is seen, the common bile duct measures up to 10 mm in diameter. No intra- or extrahepatic biliary ductal dilation. Pancreas: Unremarkable, no focal lesions. Spleen: Unremarkable. Adrenals: Unremarkable. Kidneys and ureters: There is a 5 mm hypodensity in the right kidney which may represent a tiny cyst. Bladder: Bladder is distended. Reproductive organs: Unremarkable. Bowel: A hiatal hernia is seen. The appendix is not definitely seen however no secondary signs of appendicitis are seen. Lymph nodes Retroperitoneal: Unremarkable. Pelvic: Unremarkable. Mesenteric: Unremarkable. Peritoneum: Normal. Vessels: Atherosclerotic calcifications are seen. Abdominal wall: Unremarkable. Bones: Mild degenerative changes are seen. IMPRESSION: Findings are compatible with acute cholecystitis with a stone in the gallbladder neck.
--- NOTE | 2021-12-08 16:53 | History & Physical Report ---
Date of Service December 08, 2021 Assessment & Plan (1) Elevated transaminase level: (2) Lyme disease: Plan: - Admit to med surg with tele - Positive on outpatient EPIC results as of 12/06, western blot still pending - Pt does not recall tick bite but does enjoy outdoor activities - Continue doxycycline 100 mg Q12H - was started in the ER, pt was prescribed as outpatient however did not start taking it as of her arrival here - EKG reviewed without abnormalities - LFTs bumped, but T bili is WNL - possibly due to tick born infection(s) - awaiting anaplasmosis results, will trend LFTs with am labs - no thrombocytopenia, plt 302 - CRP 3.34, ESR 52 on admission (3) Gallstone: Plan: - Consult general surg - appreciate recs - CT abd/pelvis shows gallbladder is distended. A large gallstone is seen in the gallbladder neck. The gallbladder wall measures 3 mm in diameter. Mild enlargement of the intra and extrahepatic bile ducts is seen, the common bile duct measures up to 10 mm in diameter. - Consider RUQ US vs MRCP since inpatient - Pt with nausea x 1 week, initial abdominal pain last week now improved/subsided. Negative Silas sign and no RUQ pain on deep palpation. Unlikely acute cholecystitis as discussed with general surgery - Allow diet for now, encouraged clears to start since poor PO intake x 1 week (4) Hypothyroidism: Plan: - Cont levothyroxine DVT ppx: - teds, scds, ambulatory CODE: Full code Dispo: From home, likely to remain in the hospital x 1-2 days History of Present Illness Chief Complaint: Illness Primary Care Provider: Veronica Cabrera PA-C This is a 61-year-old female with PMHx of prediabetes, hypothyroidism, HLD, and newfound Lyme titer positive from 12/06/2021 who presented here to the hospital today due to worsening right leg pain/groin pain. She states that it goes from the inside of her right thigh down to her knee and feels like a deep generalized achy pain. Nothing seems to make this better. She has been alternating Tylenol and ibuprofen over the weekend however did not gain relief. Patient used ice today but was minimally effective. She has not been eating or drinking well since last Sunday due to nausea. She denies vomiting or specific abdominal pain in the RUQ. Patient is hungry now and would like to try something if allowable. Her who is present at bedside reports that she had fever as high as 102.1 last Sunday which persisted throughout the weekend despite Tylenol and ibuprofen. She has been afebrile today. Previously she was seen at [place] emergency department on 12/06/21 for fever, headache, body ache, neck pain abdominal pain and nausea which had been going on since 12/03/2021. She also complained of generalized body aches and complained of increased pain in her lower abdomen and her lower back. T-max at that point time had been 103 degrees. During that hospital visit she was diagnosed with a UTI and placed on Keflex. She denies knowing the culture results from her visit to [place]. She had outpatient urine culture drawn at [facility] on 12/06 which is negative on review of [facility] outpatient chart. Denies any dysuria, burning, increase in frequency with urination. During her visit to [facility] urgent care clinic she was checked for tick borne illnesses due to fever complaints. While pt was here in the ER her PCP called her and told her she was Lyme's positive. They sent a prescription for doxycycline p.o., however she of course has not started this antibiotic yet. Her urine culture so far is negative for any growth. She admits to being outdoors quite often but cannot recall any tick bite that she is aware of. She denies any recent bull's-eye rash. Patient does have a dog which gets ticks quite often at home. Allergies Allergy/AdvReac Type Severity Reaction Status Date / Time No Known Allergies Allergy Verified 12/08/21 14:22 Home Medications Medication Instructions Recorded Confirmed Type alfalfa 250 mg tablet 2,500 mg PO DAILY 05/26/19 12/08/21 History multivitamin 1 tab PO DAILY 05/26/19 12/08/21 History vitamin B complex 1 tab PO DAILY 05/26/19 12/08/21 History ascorbic acid (vitamin C) 500 mg 1,000 mg PO DAILY 04/06/21 12/08/21 History tablet (Vitamin C) levothyroxine 125 mcg tablet 125 mcg PO DAILYBB 12/08/21 12/08/21 History (Euthyrox) Past Med/Surg History Medical History Arthritis Hypothyroidism Surgical History History of appendectomy History of colonoscopy History of tonsillectomy [place] teeth removed Family History (Updated 12/08/21 @ 17:43 by Maggie Duncan PA-C) Mother Cancer Lung disease Father Heart disease Hypertension ESRD (end stage renal disease) Social History (Updated 12/08/21 @ 18:09 by Maggie Duncan PA-C) Smoking Status: Former smoker Smoking End Date: 1987; Second Hand Exposure: No; Tobacco Cessation Education Requested by Patient: No Hx Alcohol Use: Yes Alcohol type: hard liquor Alcohol Intake Frequency Comment: rare occasion - ex. wedding celebration Hx Substance Use: No Preferred Language: [place] Communication Ability: Effective Projection Technician Required: No Beliefs That Will Affect Care: None Current Living Situation: Family Current Living Situation Comment: AND SON Other Information That Helps Us Care for You: No Feels Safe at Home: Yes Safety Concerns: Feels Safe At This Time Assistive Devices: Glasses Review of Systems Review of Systems: Constitutional: As per HPI with fever, none currently, no sweats or chills Eyes: No diplopia, no worsening or blurred vision ENT: normal hearing, no trouble swallowing Respiratory: No cough, sputum, dyspnea at rest or on exertion Cardiovascular: No chest pain, tightness or palpitations Abdomen: No pain, + nausea, no vomiting, no diarrhea or constipation, Last BM was on Sunday (2 days ago) Musculoskeletal: R groin and R inner thigh pain, no joint pain, calf pain, swelling Neurologic: No weakness, numbness/tingling, or balance problems Psychiatric: No anxiety or depression Skin: No rash or itch, no bullseye rash Physical Exam Physical Exam: General: awake, alert, no apparent distress Head: Normocephalic, atraumatic ENT: PERRL, EOMI, no pharyngeal exudate, mucous membranes moist Chest: Clear to auscultation, on room air, no adventitious breath sounds Cardiac: Regular rate and rhythm, no murmur, no JVD, normal peripheral pulses, good capillary refill Abdominal: NABS x 4 quadrants, soft, nondistended, nontender to palpation, no rebound or guarding Extremities: Normal inspection, no peripheral edema or erythema, calfs nontender to palpation Psych: Normal mood and affect Neuro: AAO x 3, strength intact bilaterally and rated 5/5, no motor deficits, speech is clear, no peripheral sensory deficits Results & Data Results & Data ([facility]) Vital Signs (Past 12 Hours) Vital Signs Temp Pulse Pulse Resp BP BP Pulse Ox 12/08/21 15:03 65 15 164/71 H 98 12/08/21 13:00 59 L 18 157/112 H 97 12/08/21 11:33 62 16 175/80 H 98 12/08/21 12:10 75 18 97 12/08/21 09:40 36.4 C L 75 18 174/80 H 97 O2 Del Method 12/08/21 15:03 12/08/21 13:00 Room Air 12/08/21 11:33 Room Air 12/08/21 12:10 Room Air 12/08/21 09:40 Room Air Laboratory Results 12/08/21 16:30 Aerobic Blood Culture - Pending Blood Anaerobic Blood Culture - Pending 12/08/21 16:30 Aerobic Blood Culture - Pending Blood Anaerobic Blood Culture - Pending 12/08/21 12/08/21 12/08/21 16:30 12:02 11:46 WBC RBC Hgb Hct MCV MCH MCHC RDW Std Deviation RDW Coeff of Lo Plt Count MPV Immature Gran % (Auto) Neut % (Auto) Lymph % (Auto) Allen % (Auto) Eos % (Auto) Baso % (Auto) Neut # (Auto) Lymph # (Auto) Allen # (Auto) Eos # (Auto) Baso # (Auto) Immature Gran # (Auto) ESR Sodium Potassium Chloride Carbon Dioxide Anion Gap BUN Creatinine Est Cr Clr Drug Dosing Est GFR ( Amer) Est GFR (Non-Af Amer) BUN/Creatinine Ratio Glucose Lactate 0.5 Calcium Phosphorus Magnesium Total Bilirubin AST ALT Alkaline Phosphatase C-Reactive Protein Total Protein Albumin Globulin Albumin/Globulin Ratio Lipase Procalcitonin 0.09 Anaplasma Smear Babesia Smear Lyme Disease IgG Ab Lyme Disease IgM Ab SARS-CoV-2 (PCR) NEGATIVE 12/08/21 12/08/21 12/08/21 11:46 11:46 11:46 WBC RBC Hgb Hct MCV MCH MCHC RDW Std Deviation RDW Coeff of Lo Plt Count MPV Immature Gran % (Auto) Neut % (Auto) Lymph % (Auto) Allen % (Auto) Eos % (Auto) Baso % (Auto) Neut # (Auto) Lymph # (Auto) Allen # (Auto) Eos # (Auto) Baso # (Auto) Immature Gran # (Auto) ESR 52 H Sodium 140 Potassium 3.3 L Chloride 104 Carbon Dioxide 30 Anion Gap 6 BUN 14 Creatinine 0.57 L Est Cr Clr Drug Dosing 93.8 Est GFR ( Amer) 115.2 Est GFR (Non-Af Amer) 99.4 BUN/Creatinine Ratio 24.6 H Glucose 100 H Lactate Calcium 9.0 Phosphorus 3.1 Magnesium 2.2 Total Bilirubin 0.6 AST 142 H ALT 150 H Alkaline Phosphatase 304 H C-Reactive Protein 3.34 H Total Protein 7.8 Albumin 4.0 Globulin 3.8 Albumin/Globulin Ratio 1.1 Lipase 80 Procalcitonin Anaplasma Smear Babesia Smear Lyme Disease IgG Ab Positive A Lyme Disease IgM Ab Positive A SARS-CoV-2 (PCR) 12/08/21 12/08/21 11:46 11:46 WBC 9.32 RBC 4.16 Hgb 12.4 Hct 35.9 MCV 86.3 MCH 29.8 MCHC 34.5 RDW Std Deviation 41.5 RDW Coeff of Lo 13.3 Plt Count 302 MPV 9.0 L Immature Gran % (Auto) 6.8 Neut % (Auto) 68.7 Lymph % (Auto) 16.3 Allen % (Auto) 5.3 Eos % (Auto) 1.9 Baso % (Auto) 1.0 Neut # (Auto) 6.41 Lymph # (Auto) 1.52 Allen # (Auto) 0.49 Eos # (Auto) 0.18 Baso # (Auto) 0.09 Immature Gran # (Auto) 0.63 H ESR Sodium Potassium Chloride Carbon Dioxide Anion Gap BUN Creatinine Est Cr Clr Drug Dosing Est GFR ( Amer) Est GFR (Non-Af Amer) BUN/Creatinine Ratio Glucose Lactate Calcium Phosphorus Magnesium Total Bilirubin AST ALT Alkaline Phosphatase C-Reactive Protein Total Protein Albumin Globulin Albumin/Globulin Ratio Lipase Procalcitonin Anaplasma Smear See Comment Babesia Smear See Comment Lyme Disease IgG Ab Lyme Disease IgM Ab SARS-CoV-2 (PCR) Diagnostic Findings Abdomen/Pelvis CT 12/08/21 11:02 CT abd pelvis IV con only CLINICAL HISTORY: lower abd pain, right groin TECHNIQUE: Helical axial images of the abdomen and pelvis were obtained and displayed. Automated dose lowering techniques and/or adjustment according to patient size were utilized for this exam. This exam was performed with intravenous contrast. CT DOSE: 552.23 mGycm COMPARISON: Comparison is made to CT abdomen pelvis 03/05/2013 FINDINGS: Lower chest: No acute abnormality Liver: Unremarkable. No focal lesions are seen. Gallbladder and biliary tree: The gallbladder is distended. A large gallstone is seen in the gallbladder neck. The gallbladder wall measures 3 mm in diameter. Mild enlargement of the intra and extrahepatic bile ducts is seen, the common bile duct measures up to 10 mm in diameter. No intra- or extrahepatic biliary ductal dilation. Pancreas: Unremarkable, no focal lesions. Spleen: Unremarkable. Adrenals: Unremarkable. Kidneys and ureters: There is a 5 mm hypodensity in the right kidney which may represent a tiny cyst. Bladder: Bladder is distended. Reproductive organs: Unremarkable. Bowel: A hiatal hernia is seen. The appendix is not definitely seen however no secondary signs of appendicitis are seen. Lymph nodes Retroperitoneal: Unremarkable. Pelvic: Unremarkable. Mesenteric: Unremarkable. Peritoneum: Normal. Vessels: Atherosclerotic calcifications are seen. Abdominal wall: Unremarkable. Bones: Mild degenerative changes are seen. IMPRESSION: Findings are compatible with acute cholecystitis with a stone in the gallbladder neck. ACT 112: Negative or not required by law. Electronically signed by: Gary Sadler M.D. 12/08/2021 2:24 PM Venous Doppler Study 12/08/21 11:07 RIGHT LOWER EXTREMITY VENOUS DOPPLER HISTORY: Right leg pain COMPARISON STUDY: None. FINDINGS: There is normal compressibility, flow, and augmentation within the right lower extremity deep venous system. IMPRESSION: No DVT within the right lower extremity ACT 112: Negative or not required by law. Electronically signed by: Jorge Tellez M.D. 12/08/2021 1:25 PM ECG Additional Comments: 08-DEC-2021 11:48:04 [facility]-ED STAT ROUTINE RETRIEVAL Normal sinus rhythm Normal ECG When compared with ECG of 07-JUN-2006 18:52, No significant change was found 25mm/s10mm/[id number]: [id number] by: REFERRED SELF Unconfirmed Vent. rate 66 BPM SD interval 174 ms QRS duration 92 ms QT/QTc 412/431 ms Code Status & VTE Plan Code Status Full code - discussed with the patient at bedside Supervising Physician Co-Signing Physician Notes This is an attending cosign note for full reports and documentation please see full dictation by SHANIQUA following is a synopsis. Patient presenting from patient's physician office for positive Lyme screen with complaints of nauseousness abdominal discomfort fevers noted to have elevated liver related enzymes also found to have gallstones with no active evidence of cholecystitis. Most important thing. Head atraumatic chest largely clear abdomen largely soft. Patient otherwise denying any rash or recollection of tick bite. Does enjoy the outdoors. Initiate doxycycline. Infectious disease evaluation. General surgery following for gallstones.
[2021-12-08] MEDS ORDERED: ONDANSETRON INJ 2 MG/ML 2 ML VIAL IV PRN (18:12)
[2021-12-08] MEDS ORDERED: ACETAMINOPHEN 325 MG TAB PO PRN (18:12)
[2021-12-08] MEDS: SODIUM CHLORIDE 0.9% 1000ML 1,000 ML IV SCH (19:06)
[2021-12-09] MEDS ORDERED: POLYETHYLENE (MIRALAX) 17 GM PACK PO STA (00:12)
[2021-12-09] MEDS ORDERED: POLYETHYLENE (MIRALAX) 17 GM PACK PO PRN (00:12)
--- NOTE | 2021-12-09 05:53 | Electrocardiogram Report ---
Test Reason : Blood Pressure : / mmHG Vent. Rate : 066 BPM Atrial Rate : 066 BPM P-R Int : 174 ms QRS Dur : 092 ms QT Int : 412 ms P-R-T Axes : 050 046 053 degrees QTc Int : 431 ms Normal sinus rhythm Normal ECG When compared with ECG of 07-JUN-2006 18:52, No significant change was found Confirmed by Edson Castillo ([id number]) on 12/09/2021 5:53:15 AM Referred By: REFERRED SELF Confirmed By:Edson Castillo
[2021-12-09] MEDS ORDERED: DOXYCYCLINE HYCLATE 100 MG in DEXTROSE 5% 100 ML IV SCH (06:00)
[2021-12-09] MEDS: SODIUM CHLORIDE 0.9% 1000ML 1,000 ML IV SCH (06:26)
[2021-12-09] MEDS ORDERED: LEVOTHYROXINE SODIUM 125 MCG TABLET PO SCH (06:30)
[2021-12-09 07:09] LABS: Hematocrit (blood only) 35.7 % (34.1-44.9); Hemoglobin 12.3 g/dl (12.0-16.0); Mean Corpuscular Hemoglobin 30.1 pg (25.0-34.0); Mean Corpuscular Hgb Conc 34.5 g/dL (32.0-36.0); Mean Corpuscular Volume 87.3 fL (80.0-100.0); Mean Platelet Volume 8.7 fL (9.4-12.3); Platelet Count 314 K/uL (130-400); RDW Coefficient of Variation 13.2 % (11.5-14.5); RDW Standard Deviation 41.4 fL (36.4-46.3); Red Blood Count 4.09 M/uL (3.93-5.22); White Blood Count 10.43 K/ul (4.8-10.8)
[2021-12-09 07:15] LABS: Estimated Average Glucose 114 mg/dl; Hemoglobin A1C 5.6 % (4.5-5.6)
[2021-12-09 07:34] LABS: Albumin Level 3.5 gm/dl (3.4-5.0); BUN Creatinine Ratio 22.4 (10-20); Bilirubin,Total 0.5 mg/dl (0.2-1.0); Calcium 8.7 mg/dl (8.5-10.1); Creatinine Clr Calc Pharmacy 109.1 ml/min; Est GFR (Non-African American) 104.4 ml/min; Globulin 3.5 gm/dl (2.5-4.0); Potassium 3.9 mmol/L (3.5-5.1)
--- NOTE | 2021-12-09 11:25 | Surgery Progress Note ---
Date of Service December 09, 2021 Assessment & Plan (1) Lyme disease: (2) Gallstone: Plan 61 year-old female with 1 week history of generalized aches/pains, fever, nausea without vomiting, pain in right lower groin into her right leg more acutely in last few days who was diagnosed with lyme disease who was found to have gallstone in gallbladder neck with distended gallbladder on CT scan and dilated CBD at 10 mm. Her t. bili is wnl , lfts are improving. No leukocytosis. NO RUQ abdominal pain. Plan: No indication for cholecystectomy at this time. Her CT scan findings of gallstone in gallbladder neck is likely an incidental as she is not having any biliary symptoms. Her LFTs may be elevated secondary to lyme disease and her t. bili is normal. LFTS improved today. Could get an MRCP as outpatient to further evaluate the dilated CBD however not emergent at this time. Would continue to treat lyme disease Advised avoidance of a lot of fatty/greasy/spicy foods and if she were to start having RUQ abdominal pain postprandial then she can follow-up with Dr. call as outpatient to discuss cholecystectomy. Our services signing off, please call with questions/concerns. Dr. Sin has seen and examined pt, agrees with above Admission and Anticipated Discharge Date Admission Date: December 08, 2021 Supervising Physician Co-Signing Physician Notes I have seen and examined the patient personally and agree with the above assessment plan. She is not having any symptoms related to her gallbladder at this time. I would consider the distended gallbladder and gallstone as completely incidental findings on CT scan, as she came to the emergency department due to leg pain. We will have her follow-up with us as an outpatient, where we will discuss further testing such as ultrasound or MRCP. She will call with any new or concerning symptoms in the meantime. Subjective feeling much better this am no n,v no abdominal pain tolerated clear liquids Physical Exam Constitutional: WD/WN, vitals as above no acute distress and not ill appearing Neck: normal visual inspection and trachea midline Respiratory: normal respiratory effort; no respiratory distress, no labored breathing and no retractions Skin: no rashes, warm and dry no jaundice Psychiatric: A+Ox3, euthymic affect Results & Data ([facility]) Vital Signs (Past 12 Hours) Vital Signs Temp Pulse Pulse Pulse Resp BP Pulse Ox 12/09/21 07:45 36.6 C 60 18 168/60 H 97 12/09/21 07:26 54 L 12/09/21 03:22 36.5 C 57 L 18 118/66 95 O2 Del Method 12/09/21 07:45 Room Air 12/09/21 07:26 12/09/21 03:22 Room Air Laboratory Results 12/09/21 12/09/21 12/09/21 Range/Units 06:42 06:42 06:42 WBC (4.8-10.8) K/ul RBC (3.93-5.22) M/uL Hgb (12.0-16.0) g/dl Hct (34.1-44.9) % MCV (80.0-100.0) fL MCH (25.0-34.0) pg MCHC (32.0-36.0) g/dL RDW Std Deviation (36.4-46.3) fL RDW Coeff of Lo (11.5-14.5) % Plt Count (130-400) K/uL MPV (9.4-12.3) fL Immature Gran % (Auto) % Neut % (Auto) % Lymph % (Auto) % [place] % (Auto) % Eos % (Auto) % Baso % (Auto) % Neut # (Auto) (1.4-6.5) K/uL Lymph # (Auto) (1.2-3.4) K/uL [place] # (Auto) (0.24-0.82) K/uL Eos # (Auto) (0-0.50) K/uL Baso # (Auto) (0-0.2) K/uL Immature Gran # (Auto) (0.00-0.02) K/uL ESR (0-30) mm/hr Sodium 138 (136-145) mmol/L Potassium 3.9 (3.5-5.1) mmol/L Chloride 107 (98-107) mmol/L Carbon Dioxide 24 (21-32) mmol/L Anion Gap 7 (3-11) BUN 11 (6-23) mg/dl Creatinine 0.49 L (0.6-1.2) mg/dl Est Cr Clr Drug Dosing 109.1 ml/min Est GFR ( Amer) 121.0 ml/min Est GFR (Non-Af Amer) 104.4 ml/min BUN/Creatinine Ratio 22.4 H (10-20) Glucose 129 H (70-99(Fasting)) mg/dl Estimat Average Glucose 114 mg/dl Hemoglobin A1c 5.6 (4.5-5.6) % Lactate (0.4-2.0) mmol/L Calcium 8.7 (8.5-10.1) mg/dl Phosphorus (2.5-4.9) mg/dl Magnesium (1.7-2.4) mg/dl Total Bilirubin 0.5 (0.2-1.0) mg/dl AST 100 H (13-39) U/L ALT 167 H (7-52) U/L Alkaline Phosphatase 295 H (34-104) U/L C-Reactive Protein (0-0.5) mg/dl Total Protein 7.0 (6.0-8.3) gm/dl Albumin 3.5 (3.4-5.0) gm/dl Globulin 3.5 (2.5-4.0) gm/dl Albumin/Globulin Ratio 1.0 (0.9-2) Lipase (11-82) U/L Procalcitonin (0-0.5) ng/ml Anaplasma Smear A. phagocytophilum DNA Babesia Smear Babesia microti DNA PCR Lyme Disease IgG Ab (Negative) Lyme IgG (Western Blot) Lyme IgG 18 kDa Band Lyme IgG 23 kDa Band Lyme IgG 28 kDa Band Lyme IgG 30 kDa Band Lyme IgG 39 kDa Band Lyme IgG 41 kDa Band Lyme IgG 45 kDa Band Lyme IgG 58 kDa Band Lyme IgG 66 kDa Band Lyme IgG 93 kDa Band Lyme IgM Ab (WB) Lyme Disease IgM Ab (Negative) Lyme IgM 23 kDa Band Lyme IgM 39 kDa Band Lyme IgM 41 kDa Band SARS-CoV-2 (PCR) (Negative) Hepatitis C Ab (EIA) Pending Hep C Ab Signal/Cutoff Pending 12/09/21 12/08/21 12/08/21 Range/Units 06:42 16:30 12:02 WBC 10.43 (4.8-10.8) K/ul RBC 4.09 (3.93-5.22) M/uL Hgb 12.3 (12.0-16.0) g/dl Hct 35.7 (34.1-44.9) % MCV 87.3 (80.0-100.0) fL MCH 30.1 (25.0-34.0) pg MCHC 34.5 (32.0-36.0) g/dL RDW Std Deviation 41.4 (36.4-46.3) fL RDW Coeff of Lo 13.2 (11.5-14.5) % Plt Count 314 (130-400) K/uL MPV 8.7 L (9.4-12.3) fL Immature Gran % (Auto) % Neut % (Auto) % Lymph % (Auto) % [place] % (Auto) % Eos % (Auto) % Baso % (Auto) % Neut # (Auto) (1.4-6.5) K/uL Lymph # (Auto) (1.2-3.4) K/uL [place] # (Auto) (0.24-0.82) K/uL Eos # (Auto) (0-0.50) K/uL Baso # (Auto) (0-0.2) K/uL Immature Gran # (Auto) (0.00-0.02) K/uL ESR (0-30) mm/hr Sodium (136-145) mmol/L Potassium (3.5-5.1) mmol/L Chloride (98-107) mmol/L Carbon Dioxide (21-32) mmol/L Anion Gap (3-11) BUN (6-23) mg/dl Creatinine (0.6-1.2) mg/dl Est Cr Clr Drug Dosing ml/min Est GFR ( Amer) ml/min Est GFR (Non-Af Amer) ml/min BUN/Creatinine Ratio (10-20) Glucose (70-99(Fasting)) mg/dl Estimat Average Glucose mg/dl Hemoglobin A1c (4.5-5.6) % Lactate 0.5 (0.4-2.0) mmol/L Calcium (8.5-10.1) mg/dl Phosphorus (2.5-4.9) mg/dl Magnesium (1.7-2.4) mg/dl Total Bilirubin (0.2-1.0) mg/dl AST (13-39) U/L ALT (7-52) U/L Alkaline Phosphatase (34-104) U/L C-Reactive Protein (0-0.5) mg/dl Total Protein (6.0-8.3) gm/dl Albumin (3.4-5.0) gm/dl Globulin (2.5-4.0) gm/dl Albumin/Globulin Ratio (0.9-2) Lipase (11-82) U/L Procalcitonin (0-0.5) ng/ml Anaplasma Smear A. phagocytophilum DNA Babesia Smear Babesia microti DNA PCR Lyme Disease IgG Ab (Negative) Lyme IgG (Western Blot) Lyme IgG 18 kDa Band Lyme IgG 23 kDa Band Lyme IgG 28 kDa Band Lyme IgG 30 kDa Band Lyme IgG 39 kDa Band Lyme IgG 41 kDa Band Lyme IgG 45 kDa Band Lyme IgG 58 kDa Band Lyme IgG 66 kDa Band Lyme IgG 93 kDa Band Lyme IgM Ab (WB) Lyme Disease IgM Ab (Negative) Lyme IgM 23 kDa Band Lyme IgM 39 kDa Band Lyme IgM 41 kDa Band SARS-CoV-2 (PCR) NEGATIVE (Negative) Hepatitis C Ab (EIA) Hep C Ab Signal/Cutoff 12/08/21 12/08/21 12/08/21 Range/Units 11:46 11:46 11:46 WBC (4.8-10.8) K/ul RBC (3.93-5.22) M/uL Hgb (12.0-16.0) g/dl Hct (34.1-44.9) % MCV (80.0-100.0) fL MCH (25.0-34.0) pg MCHC (32.0-36.0) g/dL RDW Std Deviation (36.4-46.3) fL RDW Coeff of Lo (11.5-14.5) % Plt Count (130-400) K/uL MPV (9.4-12.3) fL Immature Gran % (Auto) % Neut % (Auto) % Lymph % (Auto) % [place] % (Auto) % Eos % (Auto) % Baso % (Auto) % Neut # (Auto) (1.4-6.5) K/uL Lymph # (Auto) (1.2-3.4) K/uL [place] # (Auto) (0.24-0.82) K/uL Eos # (Auto) (0-0.50) K/uL Baso # (Auto) (0-0.2) K/uL Immature Gran # (Auto) (0.00-0.02) K/uL ESR 52 H (0-30) mm/hr Sodium (136-145) mmol/L Potassium (3.5-5.1) mmol/L Chloride (98-107) mmol/L Carbon Dioxide (21-32) mmol/L Anion Gap (3-11) BUN (6-23) mg/dl Creatinine (0.6-1.2) mg/dl Est Cr Clr Drug Dosing ml/min Est GFR ( Amer) ml/min Est GFR (Non-Af Amer) ml/min BUN/Creatinine Ratio (10-20) Glucose (70-99(Fasting)) mg/dl Estimat Average Glucose mg/dl Hemoglobin A1c (4.5-5.6) % Lactate (0.4-2.0) mmol/L Calcium (8.5-10.1) mg/dl Phosphorus (2.5-4.9) mg/dl Magnesium (1.7-2.4) mg/dl Total Bilirubin (0.2-1.0) mg/dl AST (13-39) U/L ALT (7-52) U/L Alkaline Phosphatase (34-104) U/L C-Reactive Protein (0-0.5) mg/dl Total Protein (6.0-8.3) gm/dl Albumin (3.4-5.0) gm/dl Globulin (2.5-4.0) gm/dl Albumin/Globulin Ratio (0.9-2) Lipase (11-82) U/L Procalcitonin 0.09 (0-0.5) ng/ml Anaplasma Smear A. phagocytophilum DNA Babesia Smear Babesia microti DNA PCR Lyme Disease IgG Ab (Negative) Lyme IgG (Western Blot) Pending Lyme IgG 18 kDa Band Pending Lyme IgG 23 kDa Band Pending Lyme IgG 28 kDa Band Pending Lyme IgG 30 kDa Band Pending Lyme IgG 39 kDa Band Pending Lyme IgG 41 kDa Band Pending Lyme IgG 45 kDa Band Pending Lyme IgG 58 kDa Band Pending Lyme IgG 66 kDa Band Pending Lyme IgG 93 kDa Band Pending Lyme IgM Ab (WB) Pending Lyme Disease IgM Ab (Negative) Lyme IgM 23 kDa Band Pending Lyme IgM 39 kDa Band Pending Lyme IgM 41 kDa Band Pending SARS-CoV-2 (PCR) (Negative) Hepatitis C Ab (EIA) Hep C Ab Signal/Cutoff 12/08/21 12/08/21 12/08/21 Range/Units 11:46 11:46 11:46 WBC (4.8-10.8) K/ul RBC (3.93-5.22) M/uL Hgb (12.0-16.0) g/dl Hct (34.1-44.9) % MCV (80.0-100.0) fL MCH (25.0-34.0) pg MCHC (32.0-36.0) g/dL RDW Std Deviation (36.4-46.3) fL RDW Coeff of Ol (11.5-14.5) % Plt Count (130-400) K/uL MPV (9.4-12.3) fL Immature Gran % (Auto) % Neut % (Auto) % Lymph % (Auto) % [place] % (Auto) % Eos % (Auto) % Baso % (Auto) % Neut # (Auto) (1.4-6.5) K/uL Lymph # (Auto) (1.2-3.4) K/uL [place] # (Auto) (0.24-0.82) K/uL Eos # (Auto) (0-0.50) K/uL Baso # (Auto) (0-0.2) K/uL Immature Gran # (Auto) (0.00-0.02) K/uL ESR (0-30) mm/hr Sodium 140 (136-145) mmol/L Potassium 3.3 L (3.5-5.1) mmol/L Chloride 104 (98-107) mmol/L Carbon Dioxide 30 (21-32) mmol/L Anion Gap 6 (3-11) BUN 14 (6-23) mg/dl Creatinine 0.57 L (0.6-1.2) mg/dl Est Cr Clr Drug Dosing 93.8 ml/min Est GFR ( Amer) 115.2 ml/min Est GFR (Non-Af Amer) 99.4 ml/min BUN/Creatinine Ratio 24.6 H (10-20) Glucose 100 H (70-99(Fasting)) mg/dl Estimat Average Glucose mg/dl Hemoglobin A1c (4.5-5.6) % Lactate (0.4-2.0) mmol/L Calcium 9.0 (8.5-10.1) mg/dl Phosphorus 3.1 (2.5-4.9) mg/dl Magnesium 2.2 (1.7-2.4) mg/dl Total Bilirubin 0.6 (0.2-1.0) mg/dl AST 142 H (13-39) U/L ALT 150 H (7-52) U/L Alkaline Phosphatase 304 H (34-104) U/L C-Reactive Protein 3.34 H (0-0.5) mg/dl Total Protein 7.8 (6.0-8.3) gm/dl Albumin 4.0 (3.4-5.0) gm/dl Globulin 3.8 (2.5-4.0) gm/dl Albumin/Globulin Ratio 1.1 (0.9-2) Lipase 80 (11-82) U/L Procalcitonin (0-0.5) ng/ml Anaplasma Smear A. phagocytophilum DNA Babesia Smear Babesia microti DNA PCR Pending Lyme Disease IgG Ab Positive A (Negative) Lyme IgG (Western Blot) Lyme IgG 18 kDa Band Lyme IgG 23 kDa Band Lyme IgG 28 kDa Band Lyme IgG 30 kDa Band Lyme IgG 39 kDa Band Lyme IgG 41 kDa Band Lyme IgG 45 kDa Band Lyme IgG 58 kDa Band Lyme IgG 66 kDa Band Lyme IgG 93 kDa Band Lyme IgM Ab (WB) Lyme Disease IgM Ab Positive A (Negative) Lyme IgM 23 kDa Band Lyme IgM 39 kDa Band Lyme IgM 41 kDa Band SARS-CoV-2 (PCR) (Negative) Hepatitis C Ab (EIA) Hep C Ab Signal/Cutoff 12/08/21 12/08/21 12/08/21 Range/Units 11:46 11:46 11:46 WBC 9.32 (4.8-10.8) K/ul RBC 4.16 (3.93-5.22) M/uL Hgb 12.4 (12.0-16.0) g/dl Hct 35.9 (34.1-44.9) % MCV 86.3 (80.0-100.0) fL MCH 29.8 (25.0-34.0) pg MCHC 34.5 (32.0-36.0) g/dL RDW Std Deviation 41.5 (36.4-46.3) fL RDW Coeff of Lo 13.3 (11.5-14.5) % Plt Count 302 (130-400) K/uL MPV 9.0 L (9.4-12.3) fL Immature Gran % (Auto) 6.8 % Neut % (Auto) 68.7 % Lymph % (Auto) 16.3 % [place] % (Auto) 5.3 % Eos % (Auto) 1.9 % Baso % (Auto) 1.0 % Neut # (Auto) 6.41 (1.4-6.5) K/uL Lymph # (Auto) 1.52 (1.2-3.4) K/uL [place] # (Auto) 0.49 (0.24-0.82) K/uL Eos # (Auto) 0.18 (0-0.50) K/uL Baso # (Auto) 0.09 (0-0.2) K/uL Immature Gran # (Auto) 0.63 H (0.00-0.02) K/uL ESR (0-30) mm/hr Sodium (136-145) mmol/L Potassium (3.5-5.1) mmol/L Chloride (98-107) mmol/L Carbon Dioxide (21-32) mmol/L Anion Gap (3-11) BUN (6-23) mg/dl Creatinine (0.6-1.2) mg/dl Est Cr Clr Drug Dosing ml/min Est GFR ( Amer) ml/min Est GFR (Non-Af Amer) ml/min BUN/Creatinine Ratio (10-20) Glucose (70-99(Fasting)) mg/dl Estimat Average Glucose mg/dl Hemoglobin A1c (4.5-5.6) % Lactate (0.4-2.0) mmol/L Calcium (8.5-10.1) mg/dl Phosphorus (2.5-4.9) mg/dl Magnesium (1.7-2.4) mg/dl Total Bilirubin (0.2-1.0) mg/dl AST (13-39) U/L ALT (7-52) U/L Alkaline Phosphatase (34-104) U/L C-Reactive Protein (0-0.5) mg/dl Total Protein (6.0-8.3) gm/dl Albumin (3.4-5.0) gm/dl Globulin (2.5-4.0) gm/dl Albumin/Globulin Ratio (0.9-2) Lipase (11-82) U/L Procalcitonin (0-0.5) ng/ml Anaplasma Smear See Comment A. phagocytophilum DNA Pending Babesia Smear See Comment Babesia microti DNA PCR Lyme Disease IgG Ab (Negative) Lyme IgG (Western Blot) Lyme IgG 18 kDa Band Lyme IgG 23 kDa Band Lyme IgG 28 kDa Band Lyme IgG 30 kDa Band Lyme IgG 39 kDa Band Lyme IgG 41 kDa Band Lyme IgG 45 kDa Band Lyme IgG 58 kDa Band Lyme IgG 66 kDa Band Lyme IgG 93 kDa Band Lyme IgM Ab (WB) Lyme Disease IgM Ab (Negative) Lyme IgM 23 kDa Band Lyme IgM 39 kDa Band Lyme IgM 41 kDa Band SARS-CoV-2 (PCR) (Negative) Hepatitis C Ab (EIA) Hep C Ab Signal/Cutoff
--- NOTE | 2021-12-09 11:31 | Hospitalist Progress Note ---
Date of Service December 09, 2021 Assessment & Plan (1) Elevated transaminase level: (2) Lyme disease: Plan: - Positive on outpatient EPIC results as of 12/06, western blot still pending - Pt does not recall tick bite but does enjoy outdoor activities - Started on doxycycline 12/08, will continue pending western blot results - Symptoms much improved - LFTs elevated but relatively stable (3) Gallstone: Plan: - Seen by genral surgery- CT A/P reviewed- attributed incidental finding by surgical team and did not recommend surgical intervention currently, recommended OP follow up with possible MRCP or if symptomatic - Tolerating diet without issues- recommended to avoid fatty, greasy, spicy food - If N/V/RUQ abd pain or fever, will reconsult surgery. (4) Hypothyroidism: Plan: - Cont levothyroxine Plan DVT ppx- sc lovenox Dispo- Anticipate discharge in 1-2 days if continues to improve. Repeat labs in am. Admission and Anticipated Discharge Date Admission Date: December 08, 2021 Subjective Feels much better. Her leg pain is significantly improved. Tolerated clears this morning and ok with regular food for lunch. No N/V. No fever or chills. Physical Exam Physical Exam: General: Sitting comfortably in bed eating breakfast, not in distress, on room air HEENT: EOMI, BENJAMÍN, MMM Chest: Clear breath sounds bilaterally, no wheezes or crackles CVS: Regular rate and rhythm, normal heart sounds, no murmur Abdomen: Soft, non tender, not distended, normal bowel sounds Neuro: Awake, alert, oriented, conversing well, non focal Extremities: No cyanosis, clubbing or edema Results & Data Results & Data ([facility]) Vital Signs (Past 12 Hours) Vital Signs Temp Pulse Pulse Pulse Resp BP Pulse Ox 12/09/21 07:45 36.6 C 60 18 168/60 H 97 12/09/21 07:26 54 L 12/09/21 03:22 36.5 C 57 L 18 118/66 95 O2 Del Method 12/09/21 07:45 Room Air 12/09/21 07:26 12/09/21 03:22 Room Air Laboratory Results Short CBC 12/08/21 12/09/21 Range/Units 11:46 06:42 WBC 9.32 10.43 (4.8-10.8) K/ul Hgb 12.4 12.3 (12.0-16.0) g/dl Hct 35.9 35.7 (34.1-44.9) % Plt Count 302 314 (130-400) K/uL BMP 12/08/21 12/09/21 11:46 06:42 Sodium 140 138 Potassium 3.3 L 3.9 Chloride 104 107 Carbon Dioxide 30 24 BUN 14 11 Creatinine 0.57 L 0.49 L Glucose 100 H 129 H Calcium 9.0 8.7 Liver Function 12/08/21 12/09/21 Range/Units 11:46 06:42 Total Bilirubin 0.6 0.5 (0.2-1.0) mg/dl AST 142 H 100 H (13-39) U/L ALT 150 H 167 H (7-52) U/L Alkaline Phosphatase 304 H 295 H (34-104) U/L Albumin 4.0 3.5 (3.4-5.0) gm/dl Medications Administered Current Inpatient Medications Acetaminophen (Acetaminophen 325 Mg Tab) 650 mg PO Q4H PRN PRN Reason: Moderate Pain Stop: 01/07/22 18:11 Doxycycline Hyclate 100 mg/ (Dextrose) 110 mls @ 50 mls/hr IV Q12H [facility] Stop: 12/19/21 05:59 Last Infusion: 12/09/21 08:00 Dose: Infused Sodium Chloride (Nss 1000ml) 1,000 mls @ 80 mls/hr IV .[id number] [facility] Stop: 12/09/21 19:14 Last Admin: 12/09/21 06:26 Dose: 80 mls/hr Levothyroxine Sodium (Levothyroxine Sodium 125 Mcg Tablet) 125 mcg PO DAILYBB [facility] Stop: 01/08/22 06:29 Last Admin: 12/09/21 05:31 Dose: 125 mcg Ondansetron HCl (Ondansetron Inj 2 Mg/Ml 2 Ml Vial) 4 mg IV Q4H PRN PRN Reason: Nausea And Vomiting Stop: 01/07/22 18:11 Polyethylene Glycol (Polyethylene (Miralax) 17 Gm Pack) 17 gm PO DAILY PRN PRN Reason: Constipation Stop: 01/08/22 00:11
--- NOTE | 2021-12-09 16:11 | Discharge Summary ---
Date of Service December 09, 2021 Admission HPI Per Admitting Provider This is a 61-year-old female with PMHx of prediabetes, hypothyroidism, HLD, and newfound Lyme titer positive from 12/06/2021 who presented here to the hospital today due to worsening right leg pain/groin pain. She states that it goes from the inside of her right thigh down to her knee and feels like a deep generalized achy pain. Nothing seems to make this better. She has been alternating Tylenol and ibuprofen over the weekend however did not gain relief. Patient used ice today but was minimally effective. She has not been eating or drinking well since last Sunday due to nausea. She denies vomiting or specific abdominal pain in the RUQ. Patient is hungry now and would like to try something if allowable. Her who is present at bedside reports that she had fever as high as 102.1 last Sunday which persisted throughout the weekend despite Tylenol and ibuprofen. She has been afebrile today. Previously she was seen at [place] emergency department on 12/06/21 for fever, headache, body ache, neck pain abdominal pain and nausea which had been going on since 12/03/2021. She also complained of generalized body aches and complained of increased pain in her lower abdomen and her lower back. T-max at that point time had been 103 degrees. During that hospital visit she was diagnosed with a UTI and placed on Keflex. She denies knowing the culture results from her visit to [place]. She had outpatient urine culture drawn at [facility] on 12/06 which is negative on review of [facility] outpatient chart. Denies any dysuria, burning, increase in frequency with urination. During her visit to [facility] urgent care clinic she was checked for tick borne illnesses due to fever complaints. While pt was here in the ER her PCP called her and told her she was Lyme's positive. They sent a prescription for doxycycline p.o., however she of course has not started this antibiotic yet. Her urine culture so far is negative for any growth. She admits to being outdoors quite often but cannot recall any tick bite that she is aware of. She denies any recent bull's-eye rash. Patient does have a dog which gets ticks quite often at home. Admission Exam Per Admitting Provider General: awake, alert, no apparent distress Head: Normocephalic, atraumatic ENT: PERRL, EOMI, no pharyngeal exudate, mucous membranes moist Chest: Clear to auscultation, on room air, no adventitious breath sounds Cardiac: Regular rate and rhythm, no murmur, no JVD, normal peripheral pulses, good capillary refill Abdominal: NABS x 4 quadrants, soft, nondistended, nontender to palpation, no rebound or guarding Extremities: Normal inspection, no peripheral edema or erythema, calfs nontender to palpation Psych: Normal mood and affect Neuro: AAO x 3, strength intact bilaterally and rated 5/5, no motor deficits, speech is clear, no peripheral sensory deficits Principal Diagnosis Lyme disease, elevated LFT, gallstone Discharge Exam General: Sitting comfortably in bed, not in distress, on room air HEENT: EOMI, BENJAMÍN, MMM Chest: Clear breath sounds bilaterally, no wheezes or crackles CVS: Regular rate and rhythm, normal heart sounds, no murmur Abdomen: Soft, non tender, not distended, normal bowel sounds Neuro: Awake, alert, oriented, conversing well, non focal Extremities: No cyanosis, clubbing or edema Discharge Data Allergies Allergy/AdvReac Type Severity Reaction Status Date / Time No Known Allergies Allergy Verified 12/08/21 14:22 Consultations 12/08/21 16:28 ED Decision to Admit Stat 12/08/21 17:02 Consult General Surgery Routine Ordered Studies 12/08/21 11:02 CT abd pelvis IV con only Stat 12/08/21 11:07 US venous doppler LE RT Stat Laboratory Results WBC 10.43 K/ul (4.8-10.8) 12/09/21 06:42 RBC 4.09 M/uL (3.93-5.22) 12/09/21 06:42 Hgb 12.3 g/dl (12.0-16.0) 12/09/21 06:42 Hct 35.7 % (34.1-44.9) 12/09/21 06:42 MCV 87.3 fL (80.0-100.0) 12/09/21 06:42 MCH 30.1 pg (25.0-34.0) 12/09/21 06:42 MCHC 34.5 g/dL (32.0-36.0) 12/09/21 06:42 RDW Std Deviation 41.4 fL (36.4-46.3) 12/09/21 06:42 RDW Coeff of Lo 13.2 % (11.5-14.5) 12/09/21 06:42 Plt Count 314 K/uL (130-400) 12/09/21 06:42 MPV 8.7 fL (9.4-12.3) L 12/09/21 06:42 Immature Gran % (Auto) 6.8 % 12/08/21 11:46 Neut % (Auto) 68.7 % 12/08/21 11:46 Lymph % (Auto) 16.3 % 12/08/21 11:46 Ashe % (Auto) 5.3 % 12/08/21 11:46 Eos % (Auto) 1.9 % 12/08/21 11:46 Baso % (Auto) 1.0 % 12/08/21 11:46 Neut # (Auto) 6.41 K/uL (1.4-6.5) 12/08/21 11:46 Lymph # (Auto) 1.52 K/uL (1.2-3.4) 12/08/21 11:46 Ashe # (Auto) 0.49 K/uL (0.24-0.82) 12/08/21 11:46 Eos # (Auto) 0.18 K/uL (0-0.50) 12/08/21 11:46 Baso # (Auto) 0.09 K/uL (0-0.2) 12/08/21 11:46 Immature Gran # (Auto) 0.63 K/uL (0.00-0.02) H 12/08/21 11:46 ESR 52 mm/hr (0-30) H 12/08/21 11:46 Sodium 138 mmol/L (136-145) 12/09/21 06:42 Potassium 3.9 mmol/L (3.5-5.1) 12/09/21 06:42 Chloride 107 mmol/L (98-107) 12/09/21 06:42 Carbon Dioxide 24 mmol/L (21-32) 12/09/21 06:42 Anion Gap 7 (3-11) 12/09/21 06:42 BUN 11 mg/dl (6-23) 12/09/21 06:42 Creatinine 0.49 mg/dl (0.6-1.2) L 12/09/21 06:42 Est Cr Clr Drug Dosing 109.1 ml/min 12/09/21 06:42 Est GFR ( Amer) 121.0 ml/min 12/09/21 06:42 Est GFR (Non-Af Amer) 104.4 ml/min 12/09/21 06:42 BUN/Creatinine Ratio 22.4 (10-20) H 12/09/21 06:42 Glucose 129 mg/dl (70-99(Fasting)) H 12/09/21 06:42 Estimat Average Glucose 114 mg/dl 12/09/21 06:42 Hemoglobin A1c 5.6 % (4.5-5.6) 12/09/21 06:42 Lactate 0.5 mmol/L (0.4-2.0) 12/08/21 16:30 Calcium 8.7 mg/dl (8.5-10.1) 12/09/21 06:42 Phosphorus 3.1 mg/dl (2.5-4.9) 12/08/21 11:46 Magnesium 2.2 mg/dl (1.7-2.4) 12/08/21 11:46 Total Bilirubin 0.5 mg/dl (0.2-1.0) 12/09/21 06:42 AST 100 U/L (13-39) H 12/09/21 06:42 ALT 167 U/L (7-52) H 12/09/21 06:42 Alkaline Phosphatase 295 U/L (34-104) H 12/09/21 06:42 C-Reactive Protein 3.34 mg/dl (0-0.5) H 12/08/21 11:46 Total Protein 7.0 gm/dl (6.0-8.3) 12/09/21 06:42 Albumin 3.5 gm/dl (3.4-5.0) 12/09/21 06:42 Globulin 3.5 gm/dl (2.5-4.0) 12/09/21 06:42 Albumin/Globulin Ratio 1.0 (0.9-2) 12/09/21 06:42 Lipase 80 U/L (11-82) 12/08/21 11:46 Procalcitonin 0.09 ng/ml (0-0.5) 12/08/21 11:46 Anaplasma Smear See Comment 12/08/21 11:46 Babesia Smear See Comment 12/08/21 11:46 Lyme Disease IgG Ab Positive (Negative) A 12/08/21 11:46 Lyme Disease IgM Ab Positive (Negative) A 12/08/21 11:46 SARS-CoV-2 (PCR) NEGATIVE (Negative) 12/08/21 12:02 Impressions Abdomen/Pelvis CT 12/08/21 11:02 CT abd pelvis IV con only CLINICAL HISTORY: lower abd pain, right groin TECHNIQUE: Helical axial images of the abdomen and pelvis were obtained and displayed. Automated dose lowering techniques and/or adjustment according to patient size were utilized for this exam. This exam was performed with intravenous contrast. CT DOSE: 552.23 mGycm COMPARISON: Comparison is made to CT abdomen pelvis 03/05/2013 FINDINGS: Lower chest: No acute abnormality Liver: Unremarkable. No focal lesions are seen. Gallbladder and biliary tree: The gallbladder is distended. A large gallstone is seen in the gallbladder neck. The gallbladder wall measures 3 mm in diameter. Mild enlargement of the intra and extrahepatic bile ducts is seen, the common bile duct measures up to 10 mm in diameter. No intra- or extrahepatic biliary ductal dilation. Pancreas: Unremarkable, no focal lesions. Spleen: Unremarkable. Adrenals: Unremarkable. Kidneys and ureters: There is a 5 mm hypodensity in the right kidney which may represent a tiny cyst. Bladder: Bladder is distended. Reproductive organs: Unremarkable. Bowel: A hiatal hernia is seen. The appendix is not definitely seen however no secondary signs of appendicitis are seen. Lymph nodes Retroperitoneal: Unremarkable. Pelvic: Unremarkable. Mesenteric: Unremarkable. Peritoneum: Normal. Vessels: Atherosclerotic calcifications are seen. Abdominal wall: Unremarkable. Bones: Mild degenerative changes are seen. IMPRESSION: Findings are compatible with acute cholecystitis with a stone in the gallbladder neck. ACT 112: Negative or not required by law. Electronically signed by: Gary Sadler M.D. 12/08/2021 2:24 PM Venous Doppler Study 12/08/21 11:07 RIGHT LOWER EXTREMITY VENOUS DOPPLER HISTORY: Right leg pain COMPARISON STUDY: None. FINDINGS: There is normal compressibility, flow, and augmentation within the right lower extremity deep venous system. IMPRESSION: No DVT within the right lower extremity ACT 112: Negative or not required by law. Electronically signed by: Jorge Tellez M.D. 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 She was diagnosed as with suspected lyme disease (IgA and IgM positive) and started on doxycycline pending western blot results. There was no DVT in RLE. Her symptoms have essentially resolved. She was noted to have elevated LFTs and CT A/P with gallbladder stone and GB distension. She was seen by surgery who attributed the findings incidental as she did not have any symptoms related to gall bladder disease and they did not recommend any surgical intervention currently but OP follow up with possible ERCP. I personally spoke to Dr Sin today over the phone regarding her. Her elevated LFTs was attributed to lyme disease. She has started on diet which she has been tolerating with no issues. No N/V/abd pain. Recommended for overnight monitoring and repeat LFTs and other labs in am, however she wanted to go home. Recommended that if she has any biliary symptoms, she return to the emergency immediately for evaluation, otherwise follow up with surgery as outpatient. She is being discharged on doxycycline course pending the western blot results and she will follow up with her PCP for final results. Her LFTs have remained relatively stable compared to yesterday- recommended repeat LFTs in next 2-3 days, if improving- recommend weekly LFTs to ensure resolution, if worsening- she will need further evaluation by PCP or GI/surgery. This was explained in detail at discharge and she verbalized understanding Total Time Total Time Spent Total Time Spent (In Minutes): 50 Discharge Plan Discharge Items Patient Disposition: Home - Self-Care Reason For Visit: LYMES, GALLSTONE, ELEVATED TRANSAMINASES Discharge Diagnosis: Lyme disease, Elevated LFTs, Gallstone Activity: Per Instructions section Non-emergency contact: Primary Care Provider and Surgeon Call non-emergency contact if: you have any medication questions, your symptoms worsen, your pain is concerning for you and you have a fever Follow-up/Referrals: Veronica Cabrera PA-C [Primary Care Provider] - Diet: Low Fat Addtl Attending Provider Instructions: Continue doxycycline for lyme disease. Follow up with family doctor for final results of the western blot test and final duration of the doxycycline. You have gallbladder stone but no symptoms. You were seen by surgery who recommended outpatient follow up to discuss surgical treatment. If you have nausea, vomiting, right upper quadrant abdominal pain or fever, chills, please come back to the emergency as it could be from the gallbladder inflammatio n/infection Recommend repeat liver function test in the next 2-3 days. If it trends down, you can repeat weekly to ensure resolution. If it trends up, you might need further work up- follow up with family doctor or gastroenterology for the same. Pending Studies at Discharge: Yes (Western blot test) Stand-Alone Forms: My [facility], Smoking Cessation Medications and DC Order Prescriptions: New doxycycline hyclate 100 mg tablet 100 mg PO BID 10 Days Qty: 20 0RF Continued alfalfa 250 mg tablet 2,500 mg PO DAILY Label Comments: TAKES 5 CAPS DAILY Rx Instructions: 5 capsule dose vitamin B complex tablet 1 tab PO DAILY multivitamin tablet 1 tab PO DAILY Rx Instructions: WITH POTASSIUM ascorbic acid (vitamin C) [Vitamin C] 500 mg Tablet 1,000 mg PO DAILY levothyroxine [Euthyrox] 125 mcg tablet 125 mcg PO DAILYBB Discharge Orders: Discharge Order (Routine); Ordered 12/09/21 Ordered By: Toni Alba Admission Data Admit Date/Time: 12/08/21 16:59 Attending Provider: Toni Alba Admit Provider: Twan Curtis Primary Care Provider: Veronica Cabrera Other Providers: Dustin Sin ; Twan Curtis Other Interventions: Discharge Summary Assessment (RN) Last Done: 12/09/21 15:01
[2021-12-11 15:24] LABS: Babesia microti DNA Not Detected (Not Detected)
[2021-12-12 15:36] LABS: 18KDIGG Band REACTIVE; 23KDIGG Band REACTIVE; 23KDIGM Band REACTIVE; 28KDIGG Band NON-REACTIVE; 30KDIGG Band NON-REACTIVE; 39KDIGG Band NON-REACTIVE; 39KDIGM Band REACTIVE; 41KDIGG Band REACTIVE; 41KDIGM Band NON-REACTIVE; 45KDIGG Band REACTIVE; 58KDIGG Band NON-REACTIVE; 66KDIGG Band NON-REACTIVE; 93KDIGG Band NON-REACTIVE; Lyme Antibodies, WB IgG NEGATIVE (NEGATIVE); Lyme Antibodies, WB IgM POSITIVE (NEGATIVE)
== END 2021-12-09 15:44 | disposition home or self-care (01) | DRG 869 ==
LOC: ED 09:33 → 2N 16:59 → SUATTDRO 16:59 → 2N 17:38